=== PATIENT | male | born 1940 | race Caucasian/White ===

== ENCOUNTER 2016-12-01 13:19 | Inpatient (IN) ==
--- NOTE | 2016-12-01 13:31 | Emergency Department Report ---
General Adult HPI - General Stated complaint: Low BP, & LOC Time Seen by Provider: 12/01/16 13:26 - Related Data Home Medications Medication Instructions Recorded Confirmed Nitroglycerin [Nitrostat] 0.4 mg SL Q5MIN PRN #0 09/27/09 Sertraline HCl 100 mg PO DAILY #0 09/28/09 Gabapentin 300 mg PO BID #0 08/31/15 Acetaminophen [Acetaminophen 8 1 - 2 tab PO Q6H PRN #0 09/02/15 Hour] Bismuth Subsalicylate 30 ml PO Q1H PRN #0 09/12/15 [Pepto-Bismol] Potassium Chloride 20 meq PO BIDWM #0 09/12/15 Tamsulosin HCl 0.4 mg PO HS #0 09/12/15 Primidone 100 mg PO BID #0 09/13/15 Carvedilol [Coreg] 1 tab PO BIDWM #0 tab 03/17/16 Furosemide [Lasix] 1 tab PO DAILY #0 tab 03/17/16 Lisinopril 10 mg PO DAILY #0 tab 03/17/16 Rivaroxaban [Xarelto] 1 tab PO DAILY #30 tab 03/17/16 Previous Rx's Medication Instructions Recorded Aspirin [Aspirin EC] 81 mg PO DAILY 30 Days #30 tab 03/21/16 Clopidogrel Bisulfate [Plavix] 75 mg PO DAILY 30 Days #30 tab 03/21/16 Allergies Allergy/AdvReac Type Severity Reaction Status Date / Time Penicillins Allergy Unknown RASH Verified 03/20/16 11:46 morphine AdvReac Mild NAUSEA Verified 03/20/16 11:46 Disposition Prescriptions: No Action Sertraline HCl 100 mg PO DAILY #0 Tamsulosin HCl 0.4 mg PO HS #0 Bismuth Subsalicylate [Pepto-Bismol] 30 ml PO Q1H PRN #0 PRN Reason: INDIGESTION Rivaroxaban [Xarelto] 1 tab PO DAILY #30 tab Carvedilol [Coreg] 1 tab PO BIDWM #0 tab Furosemide [Lasix] 1 tab PO DAILY #0 tab Lisinopril 10 mg PO DAILY #0 tab Clopidogrel Bisulfate [Plavix] 75 mg PO DAILY 30 Days #30 tab Aspirin [Aspirin EC] 81 mg PO DAILY 30 Days #30 tab Nitroglycerin [Nitrostat] 0.4 mg SL Q5MIN PRN #0 PRN Reason: CHEST PAIN Gabapentin 300 mg PO BID #0 Acetaminophen [Acetaminophen 8 Hour] 1 - 2 tab PO Q6H PRN #0 PRN Reason: PAIN Potassium Chloride 20 meq PO BIDWM #0 Primidone 100 mg PO BID #0 Referrals: Nilesh Sarmiento MD [Primary Care Provider] - Raj Rizo DO [Family Provider] -
--- OUTSIDE RECORDS SUMMARY | 2016-12-01 13:46 | External Medical Summary | Continuity of Care Document ---
:1940 Author Organization [facility] in [place] Allergies Active Description Code Type Severity Reaction Onset Reported/ Identified Relationship Clinical to Patient Status Yes Penicillins Drug N/A Eczema 11/17/2009 Aller (rash) gy Yes No Known Food N/A N/A 10/29/2012 Food Aller Allergies gy Medications Problems Date Dx Attending Type Code Diagnosis Diagnosed By Coded 10/29/2012 Vasquez MATHIAS, Final 272.4 HYPERLIPIDEMIA NEC Nilesh M NOS 10/29/2012 Vasquez MATHIAS, Final 276.8 HYPOPOTASSEMIA Nilesh M 10/29/2012 Vasquez MATHIAS, Final 285.9 ANEMIA NOS Nilesh M 10/29/2012 Vasquez MATHIAS, Final 298.9 PSYCHOSIS NOS Nilesh M 10/29/2012 Vasquez MATHIAS, Final 311 DEPRESSIVE DISORDER Nilesh M NEC 10/29/2012 Vasquez MATHIAS, Final 401.9 HYPERTENSION NOS Nilesh M 10/29/2012 Vasquez MATHIAS, Final 414.01 COR -CHER-AE HEIGHTS VESSEL Nilesh M 10/29/2012 Vasquez MATHIAS, Final 530.81 ESOPHAGEAL REFLUX Nilesh 10/29/2012 Vasquez MATHIAS, Final 805.06 FX C6 Nilesh Acevedo VERTEBRA-CLOSED 10/29/2012 Vasquez MATHIAS, External E849.0 HOME ACCIDENTS Nilesh Acevedo 10/29/2012 Vasquez MATHIAS, External E881.0 FALL FROM LADDER Nilesh Acevedo Procedures Results Encounters ACCT No. Visit Discharge Status Pt. Type Provider Facility Loc./Unit Complaint Date/Time [id number] 10/29/2012 11/07/2012 DIS Inpatient Vasquez MATHIAS, [id number] 16:43:00 10:30:00 [facility] on [place]
--- NOTE | 2016-12-01 14:33 | CT Scan Report ---
Indication: confusion and altered mental status PROCEDURE: CT head/brain wo con: Encounter: Initial Comparison: November 08, 2012 Technique: Axial CT images through the head were performed without contrast. Iterative Reconstruction dose reducing technique was utilized. FINDINGS: Generalized atrophy. The ventricles are dilated but unchanged. There are scattered areas of low attenuation in the white matter which most likely represent changes from chronic microvascular ischemia. The brainstem, cerebellum, and cerebral hemispheres otherwise have a normal morphology and CT attenuation. There is no evidence of midline displacement. No hemorrhage, signs of acute territorial stroke, mass effect, mass lesions, or edema is evident. The visualized portions of the skull base, midface, and calvarium demonstrate no abnormality. The paranasal sinuses are well aerated and free of significant disease. The tympanic and mastoid cavities appear normal. IMPRESSION: No acute intracranial abnormality or hemorrhage. .
[2016-12-01] MEDS ORDERED: ONDANSETRON 4 MG/2 ML INJECTION IVP PRN (15:34)
[2016-12-01] MEDS ORDERED: PANTOPRAZOLE 40 MG INJECTION IVP SCH (15:34)
[2016-12-01] MEDS ORDERED: PANTOPRAZOLE 40 MG INJECTION IVP ONE (15:56)
[2016-12-01] MEDS ORDERED: IDARUCIZUMAB 2.5 GM/50 ML IVP ONE (16:15)
--- NOTE | 2016-12-01 16:59 | History & Physical Report ---
History of Present Illness Date: 12/01/16 Chief complaint: hypotension HPI: Patient is a pleasant 76-year-old male shelter patient with history of coronary artery disease and atrial fibrillation. He is on aspirin, Plavix, and Pradaxa. He had a PTCA and stent on 03/20/2016. He has had low blood pressure at the shelter for the past few days and received IV fluids yesterday, but blood pressure was still low today. EMS arrived and blood pressure was 70/30. He was given IV fluids and transferred to the emergency room where blood pressure was 95/52. The patient's hemoglobin was found to be 4.1. His INR was 1.58. PTT was 45.1. BUN was 42. Creatinine 1.3. The patient was typed and crossed for 2 units. IV fluids were continued in the emergency room. I was called to admit the patient for GI bleed. The ER doctor did do a rectal exam which revealed dark stool which was Hemoccult positive. The patient was admitted to CCU. He denies any shortness of breath or chest pain. He denies any palpitations. He states he has felt lightheaded for about one week. He thinks he has had dark stools for about a week and has had a poor appetite for about a week. He has mild dementia. He states he is nonambulatory. He is agreeable to blood transfusion. Review of Systems Review of systems: Comprehensive review of systems is negative other than the above in history of present illness PFSH Mild dementia, gait instability, chronic constipation, Class III systolic heart failure hypertension, coronary artery disease, [place], stent placement in January 2017, GERD, BPH, migraines, osteoarthritis, depression, history of C. difficile in the summer of 2015, nocturnal hypoxia requiring 2 L of oxygen, Chronic tremor Surgical History: Inguinal hernia repair. Cholecystectomy. Cardiac stent. Joint surgery on his hip, knee and shoulder Family History: CHF, hypertension - Social History Smoking status: Never smoker (son Nikunj is DPOA, I spoke with him and he stated his status full code) Medications Home Medications Medication Instructions Recorded Confirmed Type Nitroglycerin [Nitrostat] 0.4 mg SL Q5MIN PRN #0 09/27/09 12/01/16 History Sertraline HCl 100 mg PO DAILY #0 09/28/09 12/01/16 History Gabapentin 300 mg PO BID #0 08/31/15 12/01/16 History Acetaminophen [Acetaminophen 8 1 - 2 tab PO Q6H PRN #0 09/02/15 12/01/16 History Hour] Bismuth Subsalicylate 30 ml PO Q1H PRN #0 09/12/15 12/01/16 History [Pepto-Bismol] Potassium Chloride 20 meq PO BIDWM #0 09/12/15 12/01/16 History Tamsulosin HCl 0.4 mg PO HS #0 09/12/15 12/01/16 History Primidone 100 mg PO BID #0 09/13/15 12/01/16 History Carvedilol [Coreg] 12.5 mg PO BIDWM #0 tab 03/17/16 12/01/16 History Furosemide [Lasix] 40 tab PO DAILY #0 tab 03/17/16 12/01/16 History Lisinopril 10 mg PO DAILY #0 tab 03/17/16 12/01/16 History Dabigatran [Pradaxa] 150 mg PO BID 12/01/16 12/01/16 History Oxybutynin Chloride 5 mg PO TID 12/01/16 12/01/16 History Allergies Allergy/AdvReac Type Severity Reaction Status Date / Time Penicillins Allergy Unknown RASH Verified 12/01/16 13:55 morphine AdvReac Mild NAUSEA Verified 12/01/16 13:55 Exam Vital Signs: Temperature 96.8 F 12/01/16 13:22 Pulse Rate 124 H 12/01/16 15:11 Respiratory Rate 16 12/01/16 15:11 Blood Pressure 95/52 12/01/16 15:11 Pulse Oximetry 100 12/01/16 15:11 Comments: Heart rate is 131, systolic blood pressure 95, O2 sat 100%, respiratory rate 20 GEN-pale, alert, oriented to [facility] and November, no acute distress HEENT-sclera anicteric, oropharynx is dry NECK-supple CV-tachycardic rate with an irregularly irregular rhythm CHEST-clear to auscultation bilaterally ABD-soft, nontender, nondistended with positive bowel sounds -no [place] EXT-no edema NEURO-significant for bilateral lower extremity weakness which is chronic SKIN-pale, warm and dry Results - Labs CBC & Chem 7: 12/01/16 14:12/01/16 14:06 Labs: INr 1.58, PTT 45.1 Assessment and Plan Assessment and Plan: 12/01/2016 Impression Acute blood loss anemia Hypotension Presumed Upper GI bleed Chronic anticoagulation with rapid access Chronic antiplatelet use with Plavix and aspirin for stent placed in February 2016 Chronic A. fib-currently A. fib with RVR Coronary artery disease-currently asymptomatic mild dementia History of hypertension Chronic nocturnal hypoxia for which he uses 2 L of oxygen Class III systolic heart failure Plan Admit to CCU. Full code per patient's son who is DPOA. Type and cross 2 units of blood and stay 2 units ahead. Give 2 units of blood now. Praxbind to reverse Pradaxa now Protonix 80 mg IV followed by protonix drip Nothing by mouth Q6 hour hemoglobin Hold all by mouth meds SCDs for DVT prophylaxis Consult Dr. Herrera regarding GI bleed/EGD Consult Dr. Thompson regarding underlying coronary artery disease Chest x-ray Check a lipid function test now and in the morning Greater than 70 minutes of critical care time spent seeing and evaluating the patient in determining care plan. Hospital Course Summary Disclaimer: The visit summary below is not to be considered part of the above Progress Note.
--- NOTE | 2016-12-01 17:31 | Cardiology Consult Note ---
History of Present Illness Consult date: 12/01/16 <Gaby Solis - 12/01/16 17:35> Requesting physician: Alyssa Adams <Gaby Solis - 12/01/16 17:35> Consult reason: atrial fibrillation, congestive heart failure <Gaby Solis - 12/01/16 17:35> Chief complaint: hypotension, lightheadedness <Gaby Solis - 12/01/16 18:16 > History of present illness: Rahul is a 76-year-old male who is known to Dr. Thompson with a history of chronic systolic heart failure, NYHA Class III, paroxysmal atrial fibrillation, cardiomyopathy, CAD with stent to [facility] in 02/2016 , HTN, CVA who is on aspirin, Plavix, and Pradaxa. He has had low blood pressure at the [facility] for the past few days and received IV fluids yesterday, but blood pressure was still low today. EMS arrived and blood pressure was 70/30. He was given IV fluids and transferred to the emergency room where blood pressure was 95/52. The patient's hemoglobin was found to be 4.1. His INR was 1.58. PTT was 45.1. BUN was 42. Creatinine 1.3. He was typed and crossed for 2 units, fist has transfused, 2nd is being hung now. IV fluids were continued in the emergency room. He was admitted to CCU for GI bleed. Dark stool was Hemoccult positive. He denies any shortness of breath or chest pain. He denies any palpitations. He states he has felt lightheaded for about one week. He thinks he has had dark stools for about a couple months. He has mild dementia. He states he is nonambulatory. He is agreeable to blood transfusion. <Gaby Solis - 12/04/16 11:27> Review of Systems - Constitutional Constitutional: Absent: chills, fever(s) <Gaby Solis - 12/01/16 17:35> - EENMT Eyes: Absent: change in vision <Gaby Solis - 12/01/16 17:35> Balance: Absent: vertigo <Gaby Solis - 12/01/16 17:35> Mouth/Throat: Absent: sore throat <Gaby Solis 12/01/16 17:35> - Cardiovascular Cardiovascular: Absent: chest pain, palpitations, syncope, dyspnea on exertion <Gaby Solis 12/01/16 17:35> - Respiratory Respiratory: Present: dyspnea, dyspnea on exertion <Gaby Solis Kristina 12/01/16 17:35> - Gastrointestinal Gastrointestinal: Present: melena. Absent: abdominal pain, diarrhea, nausea, vomiting <Gaby Solis Kristina 12/01/16 17:35> - Genitourinary Genitourinary: Absent: dysuria <Gaby Solis Kristina 12/01/16 17:35> - Integumentary/Breasts Integumentary: Absent: rash <Gaby Solis 12/01/16 17:35> - Neurological Neurological: Present: dizziness <Gaby Solis 12/01/16 17:35> [facility] Patient Stated Medical History Cardiac Arrhythmia Yes Coronary Artery Disease Yes Heart Murmur Yes Hypertension Yes Chronic Obstructive Pulmonary Yes Disease (COPD) Gastroesophageal Reflux Yes Disease Hx Renal Disease No <Hemant Thompson - 12/05/16 08:08> CAD, CVA, AFIB, Seizure disorder <Gaby Solis 12/01/16 18:16> Surgical History: Inguinal hernia repair. Cholecystectomy. Cardiac stent. Joint surgery on his hip, knee and shoulder <Gaby Solis 12/01/16 17:35> Family History: Father - HTN Mother - CHF, HTN <Gaby Solis 12/01/16 18:16> - Social History Smoking status: Never smoker <Gaby Solis 12/01/16 18:16> Substance use type: does not use <Gaby Solis 12/01/16 18:16> Alcohol intake frequency: does not drink <Gaby Solis 12/01/16 18:16> Housing: [facility] <Gaby Solis 12/01/16 18:16> Household members: none <Gaby Solis 12/01/16 18:16> Current occupational status: retired <Gaby Solis 12/01/16 18:16> Current residence: [facility] <Gaby Solis 12/01/16 18:16> Medications Home Medications Medication Instructions Recorded Confirmed Type Nitroglycerin [Nitrostat] 0.4 mg SL Q5MIN PRN #0 09/27/09 12/01/16 History Sertraline HCl 100 mg PO DAILY #0 09/28/09 12/01/16 History Gabapentin 300 mg PO BID #0 08/31/15 12/01/16 History Acetaminophen [Acetaminophen 8 1 - 2 tab PO Q6H PRN #0 09/02/15 12/01/16 History Hour] Bismuth Subsalicylate 30 ml PO Q1H PRN #0 09/12/15 12/01/16 History [Pepto-Bismol] Potassium Chloride 20 meq PO BIDWM #0 09/12/15 12/01/16 History Tamsulosin HCl 0.4 mg PO HS #0 09/12/15 12/01/16 History Primidone 100 mg PO BID #0 09/13/15 12/01/16 History Carvedilol [Coreg] 12.5 mg PO BIDWM #0 tab 03/17/16 12/01/16 History Furosemide [Lasix] 40 tab PO DAILY #0 tab 03/17/16 12/01/16 History Lisinopril 10 mg PO DAILY #0 tab 03/17/16 12/01/16 History Dabigatran [Pradaxa] 150 mg PO BID 12/01/16 12/01/16 History Oxybutynin Chloride 5 mg PO TID 12/01/16 12/01/16 History <Hemant Thompson - 12/05/16 08:08> Allergies Allergy/AdvReac Type Severity Reaction Status Date / Time Penicillins Allergy Unknown RASH Verified 12/01/16 13:55 morphine AdvReac Mild NAUSEA Verified 12/01/16 13:55 <Hemant Thompson - 12/05/16 08:08> Exam Vital signs: Temperature 98.7 F 12/05/16 00:58 Pulse Rate 92 12/05/16 00:58 Respiratory Rate 20 12/05/16 00:58 Blood Pressure 112/66 12/05/16 00:58 Pulse Oximetry 92 12/05/16 00:58 <Hemant Thompson - 12/05/16 08:08> Temperature 96.8 F 12/01/16 13:22 Pulse Rate 124 H 12/01/16 17:18 Respiratory Rate 20 12/01/16 17:18 Blood Pressure 95/52 12/01/16 15:11 Pulse Oximetry 100 12/01/16 17:18 <Gaby Solis - 12/01/16 17:35> - Constitutional no acute distress, well developed <Gaby Solis - 12/01/16 18:16> - Routine HEENT Exam Head: Present: normocephalic <Gaby Solis - 12/01/16 18:16> ENT: Present: mucous membranes moist <Gaby Solis - 12/01/16 18:16> - Routine Neck Exam Absent: JVD, carotid bruit <Gaby Solis - 12/01/16 18:16> - Routine Chest/Breast/Axilla Exam Chest wall: Absent: tenderness <Gaby Solis - 12/01/16 18:16> - Routine Respiratory Exam Present: CTA bilaterally. Absent: rales, wheezes <Gaby Solis - 12/01/16 18:43> - Routine Cardiovascular Exam Present: no murmur, irregular rhythm. Absent: JVD <Gaby Solis - 12/01/16 18:43> - Routine Abdominal Exam Present: soft, normoactive bowel sounds <Gaby Solis - 12/01/16 18:43> - Routine Extremities Exam Present: no edema <Gaby Solis 12/01/16 18:43> - Routine Skin Exam Present: intact, dry, warm <Gaby Solis - 12/01/16 18:43> - Routine Neurological Exam Present: alert, oriented X3 <Gaby Solis - 12/01/16 18:43> - Routine Psychiatric Exam Present: normal affect, normal thought process <Gaby Solis - 12/01/16 18: 43> Results 12/05/16 05:05 12/05/16 05:05 <Hemant Thompson - 12/05/16 08:08> Cardiac Enzymes 12/04/16 Range/Units 04:51 Troponin I 0.078 (0-0.12) ng/ml CBC 12/05/16 Range/Units 05:05 WBC 5.7 (4.5-11.0) T/MM3 RBC 2.81 L (4.50-5.90) M/MM3 Hgb 8.0 L (13.5-17.5) GM/DL Hct 25.0 L (41-53) % Plt Count 159 (130-400) T/MM3 Comprehensive Metabolic Panel 12/05/16 Range/Units 05:05 Sodium 145 H (134-144) MEQ/L Potassium 3.5 L (3.6-5) MEQ/L Chloride 117 H (98-107) MEQ/L Carbon Dioxide 23 (22-30) MEQ/L BUN 13.0 (9-20) MG/DL Creatinine 1.0 D (0.8-1.5) MG/DL Glucose 89 (75-110) MG/DL Calcium 7.5 L D (8.4-10.2) MG/DL Intake and Output 12/04/16 12/05/16 12/05/16 22:59 06:59 14:59 Intake Total 447.083 / 447.083 800 / 800 Balance 447.083 / 447.083 800 / 800 Intake: IV 27.083 / 27.083 NS 500ml 500 ml @ 125 mls 0 / 0 /hr IV .Q4H GOVIND Rx#: [id number] Pantoprazole IV 80 mg In 27.083 / 27.083 NS 250ml 250 ml @ 8 MG/HR 25 mls/hr IV .Q10H GOVIND Rx#:[id number] Oral 420 / 420 800 / 800 Other: Urine Odor Normal Stool Color Brown Yellow Clear Stool Consistency Liquid Size of Bowel Movement Moderate # Voids 2 1 # Incontinent Voids 1 1 # Bowel Movements 1 <Hemant Thompson - 12/05/16 08:08> Intake and Output 12/01/16 12/01/16 12/01/16 06:59 14:59 22:59 Intake Total 432 / 432 Balance 432 / 432 Intake: IV 432 / 432 NS 500ml 500 ml @ 999.9 432 / 432 mls/hr IV .Q30M GOVIND Rx#: [id number] <Gaby Solis - 12/01/16 17:35> - Imaging and Cardiology Imaging & Cardiology Narrative: Date of Exam: 12/01/16 Ordering Provider: IrmaGaby davis APRN Type of Exam(s): XR chest 1V Reason for Exam(s): afib Indication: afib PROCEDURE: XR chest 1V: Encounter: Initial Comparison: September 12, 2015 Findings: Prior left lower lobe infiltrate has cleared. Lungs are hypoinflated but grossly clear. No pneumothorax or effusion. Heart size and mediastinal contours are stable. Pulmonary vascularity is normal. Impression: No pneumonia or congestive failure. There is a preliminary report by virtual radiologic. Date of Exam: 12/01/16 Ordering Provider: Anam Casiano MD Type of Exam(s): CT head/brain wo con Reason for Exam(s): confusion and altered mental status Indication: confusion and altered mental status PROCEDURE: CT head/brain wo con: Encounter: Initial Comparison: November 08, 2012 Technique: Axial CT images through the head were performed without contrast. Iterative Reconstruction dose reducing technique was utilized. FINDINGS: Generalized atrophy. The ventricles are dilated but unchanged. There are scattered areas of low attenuation in the white matter which most likely represent changes from chronic microvascular ischemia. The brainstem, cerebellum, and cerebral hemispheres otherwise have a normal morphology and CT attenuation. There is no evidence of midline displacement. No hemorrhage, signs of acute territorial stroke, mass effect, mass lesions, or edema is evident. The visualized portions of the skull base, midface, and calvarium demonstrate no abnormality. The paranasal sinuses are well aerated and free of significant disease. The tympanic and mastoid cavities appear normal. IMPRESSION: No acute intracranial abnormality or hemorrhage. <Gaby Solis - 12/04/16 11:27> EKG interpretations - EKG EKG shows: atrial fibrillation (with RVR) <Gaby Solis - 12/01/16 18:43> Assessment and Plan - Attestation Attestation Narrative: 12/05/16 08:08 Recommendation After examining the patient I agree with the above assessment. I am involved in the formulation of the patient's plan of care. <Hemant Thompson - 12/05/16 08:08> - Assessment and Plan (1) Paroxysmal atrial fibrillation Current visit: Yes Status: Acute (2) Cardiomyopathy Current visit: Yes Status: Acute (3) Atherosclerotic heart disease of [place] coronary artery without angina pectoris Current visit: Yes Status: Acute (4) Essential (primary) hypertension Current visit: Yes Status: Acute (5) Other cerebral infarction Current visit: Yes Status: Acute (6) Diastolic CHF Current visit: Yes Status: Acute (7) Anemia Current visit: Yes Status: Acute <Hemant Thompson - 12/05/16 08:08> (1) Diastolic CHF Current visit: Yes Status: Acute Last EF on [facility] 03/20/16 was 60%, up from 38% - Will likely need diuresis after correction of anemia and hypotension - Hold home meds at this time: Will eventually restart home Coreg, lisinopril, Lasix (2) Paroxysmal atrial fibrillation Current visit: Yes Status: Acute RVR driven up by anemia, hypovolemia. - should resolve with transfusions and IVF resuscitation (3) Cardiomyopathy Current visit: Yes Status: Acute Continue Coreg when stable (4) Atherosclerotic heart disease of [place] coronary artery without angina pectoris Current visit: Yes Status: Acute Coronary stent to [facility] 03/20/16. - Hold Aspirin and Plavix due to acute anemia (5) Essential (primary) hypertension Current visit: Yes Status: Acute (6) Other cerebral infarction Current visit: Yes Status: Acute (7) Anemia Current visit: Yes Status: Acute HGB 4.1 - Type and cross and transfuse 2 units per hospitalist and recheck Hgb - Stools positive for occult blood - Stop Aspirin, plavix and Pradaxa - PradaxaBind given per hospitalist <Gaby Solis - 12/04/16 11:21> Hospital Course Summary Disclaimer: The visit summary below is not to be considered part of the above Progress Note. <Hemant Thompson - 12/05/16 08:08> The visit summary below is not to be considered part of the above Progress Note. <Gaby Solis - 12/01/16 17:35> Hospital Course: 12/01/16 18:40 Anemia: HGB 4.1 - Type and cross and transfuse 2 units per hospitalist and recheck Hgb - Stools positive for occult blood - Stop Aspirin, plavix and Pradaxa - PradaxaBind given per hospitalist Diastolic HF: Last EF on [facility] 03/20/16 was 60%, up from 38% - Will likely need diuresis after correction of anemia and hypotension - Hold home meds at this time: Will eventually restart home Coreg, lisinopril, Lasix AFib: RVR driven up by anemia, hypovolemia. - should resolve with transfusions and IVF resuscitation Thank you for allowing us to participate in the care of this patient, we will follow along with you <Gaby Solis - 12/04/16 11:27>
[2016-12-01] MEDS: PANTOPRAZOLE IV 80 MG in NS 250ml 250 ML IV SCH (17:38)
[2016-12-01] MEDS ORDERED: FUROSEMIDE 40 MG/4 ML INJECTION IVP ONE (23:00)
[2016-12-02] MEDS: SALINE FLUSH 10ml SYRINGE IVF PRN (00:25)
[2016-12-02] MEDS ORDERED: FentaNYL 100 MCG/2 ML INJECTION IVP PRN (02:44)
[2016-12-02] MEDS: PANTOPRAZOLE IV 80 MG in NS 250ml 250 ML IV SCH ×2 (03:03→14:11)
--- NOTE | 2016-12-02 10:50 | Progress Note ---
Subjective: 76-[facility]-old male [facility] patient with history of coronary artery disease and atrial fibrillation. He is on aspirin, Plavix, and Pradaxa. He had a PTCA and stent on 03/20/2016. He has had low blood pressure at the fci for the past few days and received IV fluids the day prior to admission, but blood pressure was still low today. EMS arrived and blood pressure was 70/30. He was given IV fluids and transferred to the emergency room where blood pressure was 95/52. The patient's hemoglobin was found to be 4.1. His INR was 1.58. PTT was 45.1. BUN was 42. Creatinine 1.3. The patient was typed and crossed for 2 units. IV fluids were continued in the emergency room. The ER doctor did do a rectal exam which revealed dark stool which was Hemoccult positive. The patient was admitted to CCU. Because of his treatment with Pradaxa he did receive Praxbind. He thinks he has had dark stools for about a week and has had a poor appetite for about a week. He has mild dementia. He states he is nonambulatory. This morning the patient reports feeling better. However most of his answers are simply "yes". Her nursing he is more confused today. I discussed the patient with general surgery today who also thinks the patient is more confused today. When asked if he was having any pain he admitted to abdominal pain, chest pain, leg pain so I am not sure if this is a accurate review of systems. He did have large black bowel movement overnight. He is still mildly tachycardic. The surgeon reported he may take the patient for scope tomorrow. He is going to run another P2Y12 assay to see if it is a bit higher than todays. If it is he plans on proceeding. He has received for units of packed red blood cells since admission. His hemoglobin is now up to 9.5. His blood pressure is mildly elevated as his antihypertensives have been on hold. He remains on a Protonix drip. He is incontinent of urine and is wearing a diaper. He had a stent placed in February in the diagonal artery by Dr. Reyes who is following the patient along with us on this admission for that as well as his chronic atrial fibrillation for which he takes the oral anticoagulation. Objective Vital signs: Temperature 97.4 F 12/02/16 04:00 Pulse Rate 104 H 12/02/16 05:00 Respiratory Rate 21 12/02/16 05:00 Blood Pressure 160/77 H 12/02/16 05:00 Pulse Oximetry 96 12/02/16 05:00 Rhythm: Atrial Fibrillation with RVR Comments: Gen: confused. Awake and alert. Skin: warm and dry HEENT: NC/AT PERRL, EOMI, Sclera, lids and conjunctiva wnl. MMM. OP clear Neck: supple. No JVD, Carotids 2+ without bruits Lungs: diminished. Clear. No Wheezes CV: irregular and slightly tachycardic. Results - Labs CBC & Chem 7: 12/02/16 09:52 12/02/16 04:05 Assessment and Plan Assessment and Plan: 12/02/2016 1. Acute blood loss anemia -Has been transfused 4 PRBCs, -Hgb fairly stable at present. -Off plavix, ASA and Pradaxa -Has been given Praxbind -Gen surgery consulted and plans for EGD Sun/Mon depending on P2Y12. -On protonix gtt. -q6hr H&H 2. H/O HF -h/o Systolic and diastolic HF. -Systolic better by HC to 60% 2016. -will resume coreg when BP more consistently higher. 3. PAF -Followed by Dr. Reyes -Off OAC for now due to GIB -Rate control, resume Coreg when BP more stable 4. MEDICAL OFFICE COORDINATOR -Systolic function normalized -Resume coreg when BP better -Dr. Reyes following. 5. CAD -Recent (Feb 2016) stent to Diag artery -Holding plavix and ASA due to GIB 6. HTN -BP variable. Will resume coreg when consistently higher. 7. Dementia 8. Prophylaxis with SCDs, protonix 9. Nocturnal hypoxia -On oxygen 2 liters. 10. Pt made a DNR - Time spent with patient Time with patient PN: 50 minutes Hospital Course Summary Disclaimer: The visit summary below is not to be considered part of the above Progress Note. Hospital Course: 12/01/16 18:40 Anemia: HGB 4.1 - Type and cross and transfuse 2 units per hospitalist and recheck Hgb - Stools positive for occult blood - Stop Aspirin, plavix and Pradaxa - PradaxaBind given per hospitalist Diastolic HF: Last EF on [facility] 03/20/16 was 60%, up from 38% - Will likely need diuresis after correction of anemia and hypotension - Hold home meds at this time: Will eventually restart home Coreg, lisinopril, Lasix AFib: RVR driven up by anemia, hypovolemia. - should resolve with transfusions and IVF resuscitation Thank you for allowing us to participate in the care of this patient, we will follow along with you
--- NOTE | 2016-12-02 11:21 | Consultation ---
DATE OF CONSULTATION 12/01/2016 HISTORY OF PRESENT ILLNESS This patient is 76 years old. This patient is known to have cardiac disease which includes cardiac disease which includes NYHA class III chronic systolic heart failure, paroxysmal atrial fibrillation, cardiomyopathy and coronary artery disease. The patient did undergo cardiac catheterization with placement of a drug-eluting coronary artery stent at the diagonal coronary artery on 03/[address] Thompson at [facility]. The patient has recently been anticoagulated with aspirin, Plavix and Pradaxa. The patient states that he has had black stools for the last one to two weeks. The patient denies any recent abdominal pain. The patient has had a low blood pressure at the fci for the past few days. He did receive some intravenous fluids yesterday. The blood pressure of the patient was still low today. Emergency Medical Services was called to the [facility] where the patient resides and asked to transport the patient to [facility] Emergency Room for further evaluation. Emergency Medical Services personnel found that the blood pressure of the patient was 70/30 at this time. The patient was given intravenous fluids and transferred to [facility] Emergency Room. Blood pressure was 95/52 at [facility] Emergency Room. The patient did undergo evaluation at [facility] Emergency Room and was found to have a hemoglobin of 4.1. Rectal exam was performed at the emergency room and the rectal examination did reveal dark stool which was Hemoccult positive. The patient was given additional intravenous fluids in the emergency room. The patient was typed and crossed for blood transfusion. The patient was transferred from [facility] Emergency Room to the Intensive Care Unit. The patient has received transfusion with 1 unit of packed red blood cells already. The patient has been given Praxbind 5 g intravenously to reverse the Pradaxa. The patient has had a midline catheter placed to improve intravenous access. PAST MEDICAL HISTORY PREVIOUS OPERATIONS AND PROCEDURES 1. Repair of extensive laceration at left fourth toe when the patient was [age] years old. 2. Repair of laceration of palm of left hand when 5 years old. 3. Repair of indirect right inguinal hernia on 08/21/[address] Mati Asif at [place], [place]. 4. Repair of recurrent right inguinal hernia, bilateral vasectomy and excision of skin lesion at right leg on 05/18/[address] Toni Pedroza at [place], [place]. 5. Repair of recurrent right inguinal hernia and right orchiectomy on [address] Toni Pedroza at [facility] at [place], [place]. The operation was performed for treatment of incarcerated recurrent right inguinal hernia. 6. Exploration of left foot and release of medial plantar nerve on 08/26/[address] Lee at [facility] at [place], [place]. The operation was performed for treatment of compression of the medial plantar nerve at the left foot. 7. Repair of left inguinal hernia on 06/08/[address] Herrera at [facility] at [place], [place]. The patient had an indirect left inguinal hernia. 8. Cardiac catheterization with angioplasty of the left anterior descending coronary artery on 07/25/[address] Naranjo at [facility] at [place], [place]. Discharge diagnoses were unstable angina secondary to stenosis of the mid left anterior descending coronary artery, essential hypertension and increased anxiety state. 9. Esophagogastroduodenoscopy with biopsies and esophageal dilation on [address] Herrera at [facility]. The patient did have dysphagia at this time. The patient had a small hiatal hernia. There was some chronic antral gastritis with erosions. There was some mild chronic duodenitis. 10. Laparoscopic cholecystectomy on 09/21/[address] Otto at [facility] at [place], [place]. Discharge diagnosis was acute and chronic cholecystitis. 11. Open reduction and internal fixation of left ankle on 10/29/[address] Lee at [place], [place]. Postoperative diagnosis was bimalleolar fracture of left ankle. 12. Right high tibial osteotomy on 03/25/[address] Lee at [place], [place]. Discharge diagnoses were status post fracture of right medial tibial plateau with varus angulation, postoperative anemia, hypertension, anxiety, hyperlipidemia and hiatal hernia. 13. Esophagogastroduodenoscopy with biopsies and esophageal dilation on [address] Herrera at [facility]. The patient did have a mild stricture at the gastroesophageal junction. Biopsies at the stricture showed benign results. The patient also had esophageal spasm. The patient also had some mild duodenitis. There was also a small hiatal hernia. 14. Esophagogastroduodenoscopy with biopsies and balloon dilation at gastroesophageal junction on 04/05/[address] Herrera at [facility] at [place], [place]. The patient did have a moderate-size hiatal hernia. The pathology report on biopsies of tissue at the gastroesophageal junction showed no diagnostic abnormalities. The patient did appear to have a mild stricture at the gastroesophageal junction. The patient had been having some recurrent dysphagia prior to this procedure. 15. Removal of screws through minimal access approach on 11/29/[address] Rojo at [facility] at [place], [place]. Postoperative diagnosis was tender screws around left ankle. 16. Total colonoscopy on 04/01/[address] Herrera at [facility] at [place], [place]. The patient had some sigmoid colon diverticulosis and some internal and external hemorrhoids. 17. Esophagogastroduodenoscopy with biopsies and balloon dilation at distal esophagus and gastroesophageal junction with passage of a Galarza bougie dilator on 12/01/[address] Herrera at [facility] at [place], [place]. The patient was thought after this procedure to have recurrent dysphagia which was probably due to esophageal spasm. No stricture of the distal esophagus or gastroesophageal junction was found at this time. The patient did have several gastric ulcers. The patient had duodenitis and duodenal erosions. The patient had esophageal spasm. The patient had gastritis and gastric erosions. There was a small hiatal hernia. JOHN test study was negative. 18. Left scrotal exploration, testicular biopsy, left epididymectomy and hydrocelectomy on 04/10/[address] Cramer at [facility] at [place], [place]. Postoperative diagnoses were painful spermatocele, hydrocele and thickened tunica vaginalis. 19. Left scrotal exploration, evacuation of hematoma and insertion of a drain on 04/12/[address] Cramer at [facility] at [place], [place]. Postoperative diagnosis was left scrotal hematoma. 20. Right total knee replacement on 05/19/[address] Wale Pavon at hospital on [facility] at [place], [place]. 21. Flexible cystoscopy on 08/09/[address] Jovita Yuen at the [facility] at [place], [place]. Postoperative diagnoses were chronic bladder outlet obstruction, moderate prostate enlargement, trabeculation of the bladder wall and shallow bladder diverticula. 22. Esophagogastroduodenoscopy and total colonoscopy on 09/28/[address] Herrera at [facility] at [place], [place]. Discharge diagnoses were anemia, positive fecal occult blood test, duodenitis, gastroesophageal reflux disease, small hiatal hernia, sigmoid colon diverticulosis and internal and external hemorrhoids. JOHN test study was negative at the time of this procedure. Appearance of mucosa at the esophagus was normal at this procedure. 23. Left total hip arthroplasty with ceramic heads on 11/15/[address] Wale Pavon at the [facility] at [place], [place]. Postoperative diagnosis was osteoarthritis of left hip. 24. Cardiac catheterization on 07/18/[address] Mike Santillan at [facility] at [place], [place]. The patient was found to have coronary artery disease. Left ventricular systolic function was normal. The patient did appear to have some aortic insufficiency. 25. Cardiac catheterization with percutaneous transluminal coronary angioplasty and placement of four drug-eluting stents at the coronary arteries on 07/28/[address] Heriberto Santillan at [facility] at [place], [place]. 26. Cataract operation at right eye on 02/06/[address] Ray Ledesma at [facility] at [place], [place]. 27. Cardiac catheterization with placement of a drug-eluting coronary artery stent at the diagonal coronary artery on 03/20/[address] Thompson at [facility] at [place], [place]. OTHER PREVIOUS HOSPITALIZATIONS 1. Hospitalized on 07/25/1991 at [facility] at [place], [place]. Discharge diagnosis was chest pain. The patient was transferred to [facility] at [place], [place] at the end of this hospitalization. 2. Hospitalized in March and April 2010 at the [facility] at [place], [place]. The main discharge diagnosis at this time was enterococcus bacteremia secondary to urinary source with indwelling catheter in place x 4 weeks. Additional discharge diagnoses were chest discomfort on admission with a negative Lexiscan, coronary artery disease, benign prostatic hypertrophy, dyslipidemia, hypertension, anxiety, depression and peripheral neuropathy. 3. Hospitalized in October 2012 at [facility] at [facility] at [place], [place]. One discharge diagnosis was thoracolumbar compression fractures at T4 and L2. Another discharge diagnosis was cervical facet fracture of C8 left-sided facet. The patient experienced these injuries after he fell from a ladder. 4. Hospitalized in August 2015 at [facility] at [place], [place]. Discharge diagnoses were acute septic shock, acute Clostridium difficile colitis , new-onset atrial fibrillation with rapid ventricular response, dehydration, metabolic acidosis, elevated troponin, transaminitis, acute encephalopathy, chronic dementia, history of coronary artery disease and acute bacterial urinary tract infection. PHYSICAL EXAM VITAL SIGNS: Pulse is 124. Respiratory rate is 16. Blood pressure is 95/52. Oxygen saturation is 100% on oxygen at 2 liters per minute by nasal cannula. Height is 1.7 meters. Weight is 101 kg. BMI is 34.9 kg/m2. ABDOMEN: The patient does have old laparoscopic cholecystectomy incision scars. There are no other old incision scars. No abdominal masses. No abdominal tenderness at this time. RECTUM: Exam was deferred at this time since the patient was in the middle of having a midline catheter inserted at the time of my examination of the patient. This did prevent the patient from having a rectal exam performed by me at this time. LABORATORY DATA Hemoglobin is 4.1 and hematocrit is 13.5 at 1406 hours on 12/01/2016. White blood cell count is 7000. Platelet count is 276,000. INR is 1.58. PTT is 45.1. A P2Y12 (Plavix) platelet inhibition test result is still pending at this time. IMPRESSION 1. Acute gastrointestinal tract bleeding with melena. 2. Severe anemia due to acute gastrointestinal tract blood loss. 3. Anticoagulation with aspirin, Plavix and Pradaxa. 4. Coronary artery disease. 5. Status post cardiac catheterization with placement of a drug-eluting stent at the diagonal coronary artery on 03/20/2016. 6. NYHA class III chronic systolic heart failure. 7. Paroxysmal atrial fibrillation. 8. Cardiomyopathy. 9. Small hiatal hernia. 10. Gastroesophageal reflux disease. 11. Personal history of gastric ulcers found at esophagogastroduodenoscopy on 12/01/2004. 12. Sigmoid colon diverticulosis. 13. Internal and external hemorrhoids. 14. Obstructive sleep apnea. 15. Hypertension. 16. Hyperlipidemia. 17. Obstructive benign prostatic hypertrophy. 18. Urgency urinary incontinence. 19. Osteoarthritis. 20. Allergic rhinitis. RECOMMENDATIONS 1. I agree with the decision to give the patient Praxbind to reverse the Pradaxa. 2. Hold Plavix. 3. Monitor P2Y12 (Plavix) platelet inhibition test daily. 3. Continue to transfuse the patient with packed red blood cells. 4. I agree with the Protonix infusion which the patient is receiving 5. Keep patient n.p.o. 6. Esophagogastroduodenoscopy to look for a source for upper gastrointestinal tract bleeding whenever the hemoglobin and hematocrit have been improved by transfusion and whenever the Plavix has been held long enough for the P2Y12 Plavix inhibition tests to return back to a normal level. If no source for acute gastrointestinal tract bleeding is found at the upper gastrointestinal tract at esophagogastroduodenoscopy, the patient will need to undergo colonoscopy. PATIENT EDUCATION I did talk with both the patient and his daughter about having the patient undergo esophagogastroduodenoscopy during this hospitalization. I did talk with them about possible attempts to control any acute upper gastrointestinal tract bleeding point with application of endoscopic Hemoclips or injection therapy or coagulation with a Gold Probe coagulation device. The nature of this procedure was described. Expected benefits were reviewed. Alternatives were reviewed. Potential risks and complications were also reviewed including anesthetic risk, aspiration, hypoxia and induced bleeding. The patient and his daughter appear to understand this and do wish to have the patient proceed with this procedure during this hospitalization. MAGDALENE
--- NOTE | 2016-12-02 11:43 | Progress Note ---
DATE 12/02/2016 HISTORY OF PRESENT ILLNESS This patient has received transfusion with 4 units of packed red blood cells since admission to the hospital. He had three black stools overnight last night. The patient is confused and disoriented this morning. The family has changed the resuscitation status of the patient since admission to the hospital. He was a Full Code at the time of admission to the hospital. The family has changed the patient to a DNR status since admission to the hospital. He remains in the Intensive Care Unit at this time. PHYSICAL EXAMINATION VITAL SIGNS: Temperature is 97.4 degrees Fahrenheit temporal. Pulse is 104. Blood pressure is 160/77. Oxygen saturation is 96% on oxygen at 2 liters per minute by nasal cannula. ABDOMEN: The abdomen is soft. LABORATORY DATA Hemoglobin is 9.6 and hematocrit is 29.2 at 0405 hours on 12/02/2016. INR is 1.13 this morning. The P2Y12 platelet inhibition test result is 214 this morning. IMPRESSION 1. Acute gastrointestinal tract bleeding with melena. 2. Severe anemia due to acute gastrointestinal tract blood loss which has now improved following transfusion of 4 units of packed red blood cells. 3. Recent anticoagulation with aspirin, Pradaxa and Plavix. RECOMMENDATIONS 1. Continue to monitor the patient in the Intensive Care Unit. 2. Continue to monitor hemoglobin and hematocrit levels and transfuse the patient as necessary to keep the hemoglobin and hematocrit in the current range. 3. Recheck P2Y12 Plavix platelet inhibition test again tomorrow morning. 4. Esophagogastroduodenoscopy with possible biopsies and possible control of an upper gastrointestinal tract bleeding point with application of endoscopic Hemoclips or coagulation when the patient has been off Plavix for a little longer and the P2Y12 Plavix platelet inhibition test level is a little bit higher. MTDD
[2016-12-03] MEDS: PANTOPRAZOLE IV 80 MG in NS 250ml 250 ML IV SCH ×2 (01:43→13:26)
--- NOTE | 2016-12-03 08:56 | Progress Note ---
Subjective: 76-year-old male [facility] patient with history of coronary artery disease and atrial fibrillation. He was on aspirin, Plavix, and Pradaxa. He had a stent placed in February in the diagonal artery by Dr. Reyes who is following the patient along with us on this admission for that as well as his chronic atrial fibrillation for which he takes the oral anticoagulation. He has had low blood pressure at the [facility] for the past few days and received IV fluids the day prior to admission, but blood pressure was still low today. EMS arrived and blood pressure was 70/30. He was given IV fluids and transferred to the emergency room where blood pressure was 95/52. The patient's hemoglobin was found to be 4.1. His INR was 1.58. PTT was 45.1. BUN was 42. Creatinine 1.3. The patient was typed and crossed for 2 units. IV fluids were continued in the emergency room. The ER doctor did do a rectal exam which revealed dark stool which was Hemoccult positive. The patient was admitted to CCU. Because of his treatment with Pradaxa he did receive Praxbind. He thinks he has had dark stools for about a week and has had a poor appetite for about a week. He has mild dementia. He states he is nonambulatory. This morning the patient appears very comfortable. He knew he was in [place] but stated he thought he was in the [facility]. When I told him he was in the hospital and asked him why he does report he was having abdominal pain and that' s why he's here. He denies any pain this morning. He denies any shortness of breath. His rhythm is irregular, telemetry shows atrial fibrillation. Rates vary between the 80s to 110s. 12/03/[address] Herrera called me after the EGD was completed. He reports finding absolutely nothing to account for his G.I. bleed. He is going to plan a colonoscopy tomorrow to see if it could possibly have been a proximal colonic bleed. Objective Vital signs: Temperature 96.8 F 12/03/16 04:00 Pulse Rate 87 12/03/16 05:01 Respiratory Rate 17 12/03/16 05:01 Blood Pressure 128/53 12/03/16 05:01 Pulse Oximetry 96 12/03/16 05:01 Rhythm: Atrial Fibrillation with RVR Height/Weight/BMI: Weight 79.8 kg Comments: Gen: Awake and alert. Follows commands Skin: warm and dry HEENT: NC/AT PERRL, EOMI, Sclera, lids and conjunctiva wnl. MMM. OP clear Neck: supple. No JVD, Carotids 2+ without bruits Lungs: diminished. Clear. No Wheezes CV: irregular and slightly tachycardic at times Abd: soft. +BS, ND/NT MS: no edema. Good distal pulses. Neuro: no focal deficit Results - Labs CBC & Chem 7: 12/03/16 10:03 12/03/16 04:36 Assessment and Plan Assessment and Plan: 12/03/2016 1. Acute blood loss anemia -Has been transfused 4 PRBCs, -Hgb stable at present. -Off plavix, ASA and Pradaxa -Has been given Praxbind -Gen surgery consulted and plans for EGD Sun/Mon depending on P2Y12 (285 today) -On protonix gtt. -He could probably eat if surgery not planning on EGD today. 2. H/O HF -h/o Systolic and diastolic HF. -Systolic better by HC to 60% 2016. -will resume coreg when BP more consistently higher. 3. PAF -Followed by Dr. 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 Reyes following. 5. CAD -Recent (Feb 2016) stent to Diag artery -Holding plavix and ASA due to GIB -No complaints of angina 6. HTN -BP variable. Will resume coreg when consistently higher. 7. Hypokalemia -As pt in NPO, will replace IV -Recheck in am. 8. Dementia 9. Prophylaxis with SCDs, protonix 10. Nocturnal hypoxia -On oxygen 2 liters. 11. DNR Patient underwent EGD today without any finding of a source of bleed. Dr. Herrera plans on doing a colonoscopy tomorrow. Hospital Course Summary Disclaimer: The visit summary below is not to be considered part of the above Progress Note. Hospital Course: 12/01/16 18:40 Anemia: HGB 4.1 - Type and cross and transfuse 2 units per hospitalist and recheck Hgb - Stools positive for occult blood - Stop Aspirin, plavix and Pradaxa - PradaxaBind given per hospitalist Diastolic HF: Last EF on [facility] 03/20/16 was 60%, up from 38% - Will likely need diuresis after correction of anemia and hypotension - Hold home meds at this time: Will eventually restart home Coreg, lisinopril, Lasix AFib: RVR driven up by anemia, hypovolemia. - should resolve with transfusions and IVF resuscitation Thank you for allowing us to participate in the care of this patient, we will follow along with you
[2016-12-03] MEDS ORDERED: POTASSIUM CHLORIDE PREMIX 10 MEQ/100 ML BAG IV SCH (09:17)
[2016-12-03] MEDS ORDERED: LIDOCAINE VISCOUS 2% ORAL LIQUID 15ml ONE (10:24)
--- NOTE | 2016-12-03 10:24 | Anesthesia Preoperative Report ---
Anesthesia Preoperative Record - Date and Time Date: 12/03/16 Preoperative Diagnosis: Hypotension, GI Bleed Proposed Procedure: egd NPO Since Date: 12/02/16 NPO Since Time: 12:00 Allergies/Adverse Reactions: Allergies Allergy/AdvReac Type Severity Reaction Status Date / Time Penicillins Allergy Unknown RASH Verified 12/01/16 13:55 morphine AdvReac Mild NAUSEA Verified 12/01/16 13:55 - Vital Signs Vital Signs: Temperature 96.8 F 12/03/16 04:00 Pulse Rate 98 12/03/16 08:00 Respiratory Rate 17 12/03/16 05:01 Blood Pressure 128/53 12/03/16 05:01 Pulse Oximetry 96 12/03/16 05:01 Height and Weight: Weight 79.8 kg - Medications Inpatient Medications: Current Medications Fentanyl (Fentanyl) 25 mcg IVP Q2H PRN PRN Reason: Pain Last Admin: 12/02/16 02:54 Dose: 25 mcg Pantoprazole Sodium 80 mg/ (Sodium Chloride) 250 mls @ 25 mls/hr IV .Q10H GOVIND PRN Reason: 8 MG/HR Last Infusion: 12/03/16 08:00 Dose: 8 mg/hr, 25 mls/hr Potassium Chloride (Potassium Chloride Premix) 10 meq in 100 mls @ 100 mls/hr IV Q1H GOVIND Stop: 12/03/16 13:16 Ondansetron HCl (Zofran) 4 mg IVP Q6H PRN PRN Reason: Nausea Sodium Chloride (Iv Flush) 10 - 80 ml IVF PRN PRN PRN Reason: Flushing Last Admin: 12/02/16 00:25 Dose: 30 ml Sodium Chloride (Normal Saline) 500 ml IV PRN PRN Home Medications: Home Medications Medication Instructions Recorded Confirmed Type Nitroglycerin [Nitrostat] 0.4 mg SL Q5MIN PRN #0 09/27/09 12/01/16 History Sertraline HCl 100 mg PO DAILY #0 09/28/09 12/01/16 History Gabapentin 300 mg PO BID #0 08/31/15 12/01/16 History Acetaminophen [Acetaminophen 8 1 - 2 tab PO Q6H PRN #0 09/02/15 12/01/16 History Hour] Bismuth Subsalicylate 30 ml PO Q1H PRN #0 09/12/15 12/01/16 History [Pepto-Bismol] Potassium Chloride 20 meq PO BIDWM #0 09/12/15 12/01/16 History Tamsulosin HCl 0.4 mg PO HS #0 09/12/15 12/01/16 History Primidone 100 mg PO BID #0 09/13/15 12/01/16 History Carvedilol [Coreg] 12.5 mg PO BIDWM #0 tab 03/17/16 12/01/16 History Furosemide [Lasix] 40 tab PO DAILY #0 tab 03/17/16 12/01/16 History Lisinopril 10 mg PO DAILY #0 tab 03/17/16 12/01/16 History Dabigatran [Pradaxa] 150 mg PO BID 12/01/16 12/01/16 History Oxybutynin Chloride 5 mg PO TID 12/01/16 12/01/16 History Is Patient on Beta Rakan?: No - Medical History Respiratory: Reports: Chronic Obstructive Pulmonary Disease (COPD) Cardiovascular: Reports: Abnormal EKG, Arrhythmia, Coronary Artery Disease, Heart Murmur, Hypertension Gastrointestional: Reports: Gastroesophageal Reflux Disease - Surgical History Cardiac Surgeries/Treatments: DENIES: Pacemaker Reproductive Surgery/Treatment: DENIES: Mastectomy Anesthesia Reactions: None Hx Family Anesthesia Reaction: No History of Motion Sickness: No - Social History Smoking Status: Never smoker Hx Chewing Tobacco Use: No Second Hand Exposure: No Substance Use Type: does not use Alcohol Intake Frequency: does not drink - Pertinent Findings Laboratory: CBC and BMP 12/03/16 10:03 12/03/16 04:36 BMP 12/03/16 04:36 Sodium 148 H Potassium 3.2 L Chloride 118 H Carbon Dioxide 21 L BUN 29.0 H Creatinine 1.3 Glucose 90 Calcium 8.4 EKG: A-fib - Physical Exam Respiratory Exam: Present: lungs clear Cardiovascular Exam: Present: irregularly irregular, systolic murmur - Airway Assessment Mallampati Score: III TMD: 3 Fingerbreadths Neck Extension: fair Teeth: chipped teeth/crowns Overall Assessment: no airway concerns - ASA ASA Score: 4 - Plan Anesthesia: General TIVA - Discussion Discussion: Discussed risks/options/alternatives of anesthesia and questions answered. Patient consents. Nursing pain assessment noted. Attestation Statement: Prior to the delivery of any anesthetic medication, I examined the patient, developed the plan, obtained the patient's consent and discussed the risk and benefits of the procedure with the patient/guardian. - Additional Information Seen by Anesthesia: Yes
--- NOTE | 2016-12-03 10:30 | XRay Report ---
Indication: afib PROCEDURE: XR chest 1V: Encounter: Initial Comparison: September 12, 2015 Findings: Prior left lower lobe infiltrate has cleared. Lungs are hypoinflated but grossly clear. No pneumothorax or effusion. Heart size and mediastinal contours are stable. Pulmonary vascularity is normal. Impression: No pneumonia or congestive failure. There is a preliminary report by virtual radiologic. .
[2016-12-03] MEDS ORDERED: PROPOFOL 500 MG/50 ML VIAL IV ONE (10:33)
[2016-12-03] MEDS ORDERED: SALINE FLUSH 10ml SYRINGE ONE (10:34)
[2016-12-03] MEDS ORDERED: EPHEDRINE 50mg/ml INJECTION ONE (10:35)
[2016-12-03] MEDS ORDERED: SIMETHICONE IR ONE (10:43)
[2016-12-03] MEDS ORDERED: SIMETHICONE ONE (10:43)
--- NOTE | 2016-12-03 10:44 | XRay Report ---
Indication: chf PROCEDURE: XR chest 1V: Encounter: Initial Comparison: December 01, 2016 Findings: Lungs are stable in appearance. Large hiatal hernia. No focal pneumonia or gross pleural effusion. No pneumothorax. Heart size and mediastinal contours are stable. Impression: Stable chest without evidence of acute pneumonia or congestive failure. .
--- NOTE | 2016-12-03 11:05 | General Surgery Procedure Note ---
Date of Procedure: 12/03/16 Surgeon: Javier Postoperative Diagnosis: Acute GI tract bleeding Procedure: EGD Estimated Blood Loss: See Anesthesia Record.
--- NOTE | 2016-12-03 11:11 | Anesthesia Postoperative Note ---
- Date and Time Date: 12/03/16 Time: 11:10 - Status Patient Participated in Evaluation: Patient Participated in Person Vital Signs: Temperature 98.0 F 12/03/16 09:00 Pulse Rate 88 12/03/16 09:00 Respiratory Rate 17 12/03/16 09:00 Blood Pressure 110/78 12/03/16 09:00 Pulse Oximetry 98 12/03/16 09:00 Respiratory Function: Airway Patent Cardiovascular Function: Irregular Pulse EKG: A-fib Mental Status: Alert and Oriented Pain Intensity: 0 Hydration: Taking PO Fluids, IV Infusing Complications During Recover: None Apparent - Follow-Up Instructions Instructions: Per Surgeon
[2016-12-03] MEDS ORDERED: LIDOCAINE 5% CREAM 15gm TOP PRN (11:19)
[2016-12-03] MEDS ORDERED: POLYETHYL. GLYCOL 3350 BOTTLE 238 GM PO ONE (11:19)
[2016-12-03] MEDS ORDERED: Bisacodyl EC TAB 5 MG TABLET PO ONE (18:05)
[2016-12-03] MEDS ORDERED: MAGNESIUM CITRATE 296ml PO ONE (22:47)
[2016-12-04] MEDS: SALINE FLUSH 10ml SYRINGE IVF PRN ×2 (00:10→11:40)
[2016-12-04] MEDS: PANTOPRAZOLE IV 80 MG in NS 250ml 250 ML IV SCH ×2 (00:58→12:27)
--- NOTE | 2016-12-04 08:22 | Operative Note ---
DATE OF OPERATION 12/03/2016 PREOPERATIVE DIAGNOSES 1. Acute gastrointestinal tract bleeding with melena. 2. Severe anemia due to acute gastrointestinal tract blood loss. 3. Small hiatal hernia. 4. Gastroesophageal reflux disease. 5. Personal history of gastric ulcers found at esophagogastroduodenoscopy on . POSTOPERATIVE DIAGNOSES 1. Acute gastrointestinal tract bleeding with melena. 2. Severe anemia due to acute gastrointestinal tract blood loss. 3. Gastroesophageal reflux disease. 4. Normal findings at upper gastrointestinal tract at esophagogastroduodenoscopy today. OPERATION Esophagogastroduodenoscopy. SURGEON Dr. Javier [facility] ASA CLASS 4 FINDINGS Mucosa at esophagus appeared completely normal. There was no distal esophagitis. There were no esophageal erosions or ulcers. There were no esophageal varices. There were no Lee's esophagus changes at the distal esophagus. The gastric mucosa appeared normal everywhere. There was no gastritis. There were no gastric erosions. There were no gastric ulcers. The duodenal mucosa appeared normal. There was no duodenitis. There were no duodenal erosions. There were no duodenal ulcers. No bright red blood or old blood was seen anywhere at the upper gastrointestinal tract today. Findings were completely normal throughout the upper gastrointestinal tract today. I did not really see any significant hiatal hernia at the time of esophagogastroduodenoscopy today. No source for bleeding which would lead to severe anemia or melena was seen at the upper gastrointestinal tract today. There were no angiodysplasia lesions at the upper gastrointestinal tract. There were no tumors at the upper gastrointestinal tract. Findings were normal throughout the upper gastrointestinal tract. DESCRIPTION OF OPERATION The patient was brought to the endoscopy room. The patient was kept in his intensive care unit bed while in the endoscopy room. The patient was placed in left lateral recumbent position in his intensive care unit bed. The patient was premedicated with intravenous sedation medication administered by the nurse oil pumper. The Olympus upper GI endoscope was used. The upper GI endoscope was introduced into the esophagus. The upper GI endoscope was advanced down through the esophagus and stomach and into the duodenum. The tip of the upper GI endoscope was advanced down through the duodenum beyond the level of the duodenal bulb. The upper GI endoscope was slowly withdrawn out through the duodenum and through the pylorus back into the stomach. The duodenum was very carefully examined several times as this was done. The upper GI endoscope was then retroflexed and the gastroesophageal junction was viewed from below. The upper GI endoscope was straightened out. Stomach was examined further. All of the stomach was examined several times. The upper GI endoscope was then withdrawn out through the stomach and esophagus and removed from the patient. Findings throughout the procedure were as described above. The patient did continue to receive intravenous sedation medication administered by the nurse oil pumper throughout the operation. The patient did tolerate the operation well. MAGDALENE
[2016-12-04] MEDS: LIDOCAINE 1% INJ 10 MG, POTASSIUM CHLORIDE INJ 10 MEQ in NS 100 ML IV SCH ×2 (11:21→12:29)
--- NOTE | 2016-12-04 11:30 | Cardiology Progress Note ---
Subjective Principal diagnosis: Acute anemia, Atrial fibrillation with RVR <IrmaGaby lucia - 12/04/16 11:42> Interval history: He is in his bed in CCU. He denies cardiac complaints. <Hemant Thompson - 12/06/16 07:38> Rahul is seen in follow up for anemia and atrial fibrillation with RVR. <IrmaGaby Acevedo - 12/04/16 11:42> Exam Vital signs: Temperature 97.7 F 12/06/16 07:24 Pulse Rate 90 12/06/16 07:24 Respiratory Rate 18 12/06/16 07:24 Blood Pressure 144/79 H 12/06/16 07:24 Pulse Oximetry 97 12/06/16 07:24 <Hemant Thompson - 12/06/16 07:38> Temperature 96.5 F L 12/04/16 04:59 Pulse Rate 90 12/04/16 04:59 Respiratory Rate 14 12/04/16 04:59 Blood Pressure 136/65 12/04/16 04:59 Pulse Oximetry 98 12/04/16 04:59 <Irma,Gaby - 12/04/16 11:42> - Constitutional no acute distress, well nourished, cooperative <IrmaGaby davis - 12/04/16 11: 42> - Routine HEENT Exam Head: Present: normocephalic <IrmaGaby davis Kristina - 12/04/16 11:42> ENT: Present: mucous membranes moist <IrmaGaby davis Kristina - 12/04/16 11:42> - Routine Neck Exam Absent: JVD, carotid bruit <IrmaGaby davis Kristina - 12/04/16 11:42> - Routine Chest/Breast/Axilla Exam Chest wall: Absent: tenderness <IrmaGaby davis Kristina - 12/04/16 11:42> - Routine Respiratory Exam Present: CTA bilaterally. Absent: rales, wheezes <Gaby Solis - 12/04/16 11:42> - Routine Cardiovascular Exam Present: irregular rhythm. Absent: JVD <Gaby Solis - 12/04/16 11:42> - Routine Abdominal Exam Present: soft, normoactive bowel sounds <Gaby Solis - 12/04/16 11:42> - Routine Extremities Exam Present: no edema <Gaby Solis M - 12/04/16 11:42> - Routine Skin Exam Present: intact, dry, warm <Gaby Solis - 12/04/16 11:42> - Routine Neurological Exam Present: alert, oriented X3 <Gaby Solis - 12/04/16 11:42> - Routine Psychiatric Exam Present: normal affect, normal thought process <Gaby Solis - 12/04/16 11: 42> - Additional findings Additional findings: Laboratory Results - last 48 hr 12/01/16 12/02/16 12/02/16 14:06 16:04 16:04 WBC RBC Hgb 8.9 L Hct MCV MCH MCHC RDW Std Deviation Plt Count MPV Immature Gran % (Auto) Neut % (Auto) Lymph % (Auto) [place] % (Auto) Eos % (Auto) Baso % (Auto) Neut # (Auto) Lymph # (Auto) [place] # (Auto) Eos # (Auto) Baso # (Auto) Abs Immat Gran (auto) APTT 17.7 L Plt Funct P2Y12 Units Turbidity Sodium Potassium Chloride Carbon Dioxide Anion Gap BUN Creatinine GFR Calculation BUN/Creatinine Ratio Glucose Calculated Osmolality Calcium Magnesium Icterus Index Specimen Hemolysis Crossmatch (AHG) See Detail 12/02/16 12/03/16 12/03/16 22:43 04:36 04:36 WBC 6.0 RBC 3.04 L Hgb 8.7 L 8.8 L Hct 26.6 L MCV 87.5 MCH 28.9 MCHC 33.1 RDW Std Deviation 44.4 Plt Count 195 MPV 9.7 Immature Gran % (Auto) 0.2 Neut % (Auto) 72.4 H Lymph % (Auto) 15.4 L [place] % (Auto) 9.5 H Eos % (Auto) 1.8 Baso % (Auto) 0.7 Neut # (Auto) 4.3 Lymph # (Auto) 0.9 L [place] # (Auto) 0.6 Eos # (Auto) 0.1 Baso # (Auto) 0.0 Abs Immat Gran (auto) 0.01 APTT Plt Funct P2Y12 Units Turbidity < 20 Sodium 148 H Potassium 3.2 L Chloride 118 H Carbon Dioxide 21 L Anion Gap 9 BUN 29.0 H Creatinine 1.3 GFR Calculation 54 BUN/Creatinine Ratio 22 Glucose 90 Calculated Osmolality 290 H Calcium 8.4 Magnesium 2.4 H Icterus Index < 2 Specimen Hemolysis < 15 Crossmatch ([facility]) 12/03/16 12/03/16 12/03/16 04:36 10:03 15:53 WBC RBC Hgb 9.5 L 9.8 L Hct MCV MCH MCHC RDW Std Deviation Plt Count MPV Immature Gran % (Auto) Neut % (Auto) Lymph % (Auto) [place] % (Auto) Eos % (Auto) Baso % (Auto) Neut # (Auto) Lymph # (Auto) [place] # (Auto) Eos # (Auto) Baso # (Auto) Abs Immat Gran (auto) APTT Plt Funct P2Y12 Units 285 Turbidity Sodium Potassium Chloride Carbon Dioxide Anion Gap BUN Creatinine GFR Calculation BUN/Creatinine Ratio Glucose Calculated Osmolality Calcium Magnesium Icterus Index Specimen Hemolysis Crossmatch ([facility]) 12/03/16 12/04/16 12/04/16 21:41 04:56 04:56 WBC 6.4 RBC 2.97 L Hgb 8.6 L D 8.5 L Hct 26.4 L MCV 88.9 MCH 28.6 MCHC 32.2 RDW Std Deviation 46.4 Plt Count 196 MPV 9.4 Immature Gran % (Auto) 0.2 Neut % (Auto) 72.9 H Lymph % (Auto) 15.3 L [place] % (Auto) 8.5 Eos % (Auto) 2.5 Baso % (Auto) 0.6 Neut # (Auto) 4.6 Lymph # (Auto) 1.0 [place] # (Auto) 0.5 Eos # (Auto) 0.2 Baso # (Auto) 0.0 Abs Immat Gran (auto) 0.01 APTT Plt Funct P2Y12 Units Turbidity < 20 Sodium 147 H Potassium 3.3 L Chloride 116 H Carbon Dioxide 23 Anion Gap 8 BUN 17.0 Creatinine 1.2 GFR Calculation 59 BUN/Creatinine Ratio 14 Glucose 102 Calculated Osmolality 284 H Calcium 8.4 Magnesium Icterus Index < 2 Specimen Hemolysis < 15 Crossmatch ([facility]) Fentanyl (Fentanyl) 25 mcg IVP Q2H PRN PRN Reason: Pain Last Admin: 12/02/16 02:54 Dose: 25 mcg Pantoprazole Sodium 80 mg/ (Sodium Chloride) 250 mls @ 25 mls/hr IV .Q10H GOVIND PRN Reason: 8 MG/HR Last Infusion: 12/04/16 04:00 Dose: 8 mg/hr, 25 mls/hr Lidocaine HCl 10 mg/ Potassium Chloride 10 meq/ Sodium Chloride 100 mls @ 100 mls/hr IV .Q1H GOVIND Stop: 12/04/16 12:14 Lidocaine (Anecream5) 1 applic TOP PRN PRN Ondansetron HCl (Zofran) 4 mg IVP Q6H PRN PRN Reason: Nausea Last Admin: 12/04/16 00:10 Dose: 4 mg Sodium Chloride (Iv Flush) 10 - 80 ml IVF PRN PRN PRN Reason: Flushing Last Admin: 12/04/16 00:10 Dose: 10 ml Sodium Chloride (Normal Saline) 500 ml IV PRN PRN <Gaby Solis - 12/04/16 11:42> Assessment and Plan - Assessment and Plan (1) Paroxysmal atrial fibrillation Current visit: Yes Status: Acute (2) Cardiomyopathy Current visit: Yes Status: Acute (3) Atherosclerotic heart disease of [place] coronary artery without angina pectoris Current visit: Yes Status: Acute (4) Essential (primary) hypertension Current visit: Yes Status: Acute (5) Other cerebral infarction Current visit: Yes Status: Acute (6) Diastolic CHF Current visit: Yes Status: Acute (7) Anemia Current visit: Yes Status: Acute <Hemant Thompson - 12/06/16 07:38> (1) Diastolic CHF Current visit: Yes Status: Acute (2) Paroxysmal atrial fibrillation Current visit: Yes Status: Acute (3) Cardiomyopathy Current visit: Yes Status: Acute (4) Atherosclerotic heart disease of [place] coronary artery without angina pectoris Current visit: Yes Status: Acute (5) Essential (primary) hypertension Current visit: Yes Status: Acute (6) Other cerebral infarction Current visit: Yes Status: Acute (7) Anemia Current visit: Yes Status: Acute HGB 8.5 today, 3rd unit of PRBCs transfusing <Gaby Solis - 12/05/16 10:46> - Attestation Attestation Narrative: 12/06/16 07:38 Recommendation After examining the patient I agree with the above assessment. I am involved in the formulation of the patient's plan of care. <Hemant Thompson - 12/06/16 07:38> Hospital Course Summary Disclaimer: The visit summary below is not to be considered part of the above Progress Note. <Hemant Thompson - 12/06/16 07:38> The visit summary below is not to be considered part of the above Progress Note. <Gaby Solis - 12/04/16 11:42> Hospital Course: 12/01/16 18:40 Anemia: HGB 4.1 - Type and cross and transfuse 2 units per hospitalist and recheck Hgb - Stools positive for occult blood - Stop Aspirin, plavix and Pradaxa - PradaxaBind given per hospitalist Diastolic HF: Last EF on [facility] 03/20/16 was 60%, up from 38% - Will likely need diuresis after correction of anemia and hypotension - Hold home meds at this time: Will eventually restart home Coreg, lisinopril, Lasix AFib: RVR driven up by anemia, hypovolemia. - should resolve with transfusions and IVF resuscitation Thank you for allowing us to participate in the care of this patient, we will follow along with you 12/04/16 HGB 8.5 today, 3rd unit of PRBCs transfusing <Gaby Solis - 12/05/16 11:12>
[2016-12-04] MEDS: NS FLUSH BAG 500ml IV PRN ×2 (11:41→15:04)
--- NOTE | 2016-12-04 13:36 | Progress Note ---
Subjective: The patient is seen this afternoon accompanied by his daughter. He states he is feeling okay other than having a lot of bowel movements recently which were incontinent. He has recently finished a prep for colonoscopy and colonoscopy is planned for this afternoon. He denies any chest pain or abdominal pain. He denies shortness of breath. He denies nausea or vomiting. He denies any pain. Objective Vital signs: Temperature 98.0 F 12/04/16 08:00 Pulse Rate 96 12/04/16 11:00 Respiratory Rate 24 12/04/16 11:00 Blood Pressure 94/54 12/04/16 11:00 Pulse Oximetry 94 12/04/16 11:00 Rhythm: Atrial Fibrillation with RVR Height/Weight/BMI: Weight 79.8 kg Comments: Patient had multiple stools yesterday and today and they were reportedly brown or yellow green. Weight is 79.8 kg. Admit weight I think was erroneous that 101 kg. GEN-alert, no acute distress HEENT-clear anicteric, pupils are equal, oropharynx is moist NECK-supple CV-irregularly irregular CHEST-clear to auscultation bilaterally ABD-soft, nontender with positive bowel sounds -no [place] EXT-no edema, SCDs are on NEURO-chronic lower extremity weakness SKIN-warm and dry and without rashes Results - Labs CBC & Chem 7: 12/04/16 04:56 12/04/16 04:56 Labs: Magnesium was 2.4 yesterday. Troponin today is normal at 0.078. Assessment and Plan Assessment and Plan: 12/04/2016 Impression Acute blood loss anemia. Hemoglobin 4 on admission (transfused 4 units) and 8.5 today. EGD normal 12/03/2016. Plan for colonoscopy today. Chronically anticoagulated with her back for paroxysmal atrial fibrillation- Pradaxa is on hold. Patient received reversal agent on admission. Chronic antiplatelet agent with aspirin and Plavix for coronary artery disease and recent stent in February 2016. Aspirin and Plavix are on hold Paroxysmal atrial fibrillation -rate controlled with Coreg on hold Coronary artery disease-asymptomatic history of cardiomyopathy, systolic heart failure has improved and EF is 60%. Hypokalemia with normal magnesium Hypertension-fair control off medication Dementia Nocturnal hypoxemia Plan Colonoscopy today. Further plan depending upon results. Continue to monitor hemoglobin and continue to remain off anticoagulants, antiplatelet agents for now. Resume Coreg when okay with Dr. Thompson. Patient appears cardiovascularly stable at this point. Replace potassium IV while nothing by mouth for colonoscopy Possible transfer to the floor depending upon results of colonoscopy. Continue oxygen at night for chronic nocturnal hypoxemia Hospital Course Summary Disclaimer: The visit summary below is not to be considered part of the above Progress Note. Hospital Course: 12/01/16 18:40 Anemia: HGB 4.1 - Type and cross and transfuse 2 units per hospitalist and recheck Hgb - Stools positive for occult blood - Stop Aspirin, plavix and Pradaxa - PradaxaBind given per hospitalist Diastolic HF: Last EF on [facility] 03/20/16 was 60%, up from 38% - Will likely need diuresis after correction of anemia and hypotension - Hold home meds at this time: Will eventually restart home Coreg, lisinopril, Lasix AFib: RVR driven up by anemia, hypovolemia. - should resolve with transfusions and IVF resuscitation Thank you for allowing us to participate in the care of this patient, we will follow along with you 12/03/2016 1. Acute blood loss anemia -Has been transfused 4 PRBCs, -Hgb stable at present. -Off plavix, ASA and Pradaxa -Has been given Praxbind -Gen surgery consulted and plans for EGD Sun/Mon depending on P2Y12 (285 today) -On protonix gtt. -He could probably eat if surgery not planning on EGD today. 2. H/O HF -h/o Systolic and diastolic HF. -Systolic better by HC to 60% 2016. -will resume coreg when BP more consistently higher. 3. PAF -Followed by Dr. Reyes -Off OAC for now due to GIB -Rate control, resume Coreg when BP more stable 4. MACHINE II CUTTER -Systolic function normalized -Resume coreg and KAUSHAL I when BP better -Dr. Reyes following. 5. CAD -Recent (Feb 2016) stent to Diag artery -Holding plavix and ASA due to GIB -No complaints of angina 6. HTN -BP variable. Will resume coreg when consistently higher. 7. Hypokalemia -As pt in NPO, will replace IV -Recheck in am. 8. Dementia 9. Prophylaxis with SCDs, protonix 10. Nocturnal hypoxia -On oxygen 2 liters. 11. DNR Patient underwent EGD today without any finding of a source of bleed. Dr. Herrera plans on doing a colonoscopy tomorrow.
[2016-12-04] MEDS ORDERED: PROPOFOL 20 ML ONE (15:57)
--- NOTE | 2016-12-04 16:03 | General Surgery Procedure Note ---
Date of Procedure: 12/04/16 Surgeon: Javier Postoperative Diagnosis: Acute GI tract bleeding Procedure: Colonoscopy Estimated Blood Loss: See Anesthesia Record.
--- NOTE | 2016-12-04 17:19 | Anesthesia Postoperative Note ---
- Date and Time Date: 12/04/16 Time: 17:19 - Status Patient Participated in Evaluation: Patient Participated in Person Vital Signs: Temperature 98.4 F 12/04/16 16:44 Pulse Rate 95 12/04/16 16:40 Respiratory Rate 16 12/04/16 16:40 Blood Pressure 130/73 12/04/16 16:40 Pulse Oximetry 95 12/04/16 16:40 Respiratory Function: Airway Patent, Regular Respirations Cardiovascular Function: Irregular Pulse EKG: A-fib Mental Status: Alert and Oriented Pain Intensity: 0 Hydration: IV Infusing Complications During Recover: None Apparent - Follow-Up Instructions Instructions: Per Surgeon
[2016-12-05] MEDS: SALINE FLUSH 10ml SYRINGE IVF PRN (05:06)
--- NOTE | 2016-12-05 08:33 | Operative Note ---
DATE OF OPERATION 12/04/2016 PREOPERATIVE DIAGNOSES 1. Recent acute gastrointestinal tract bleeding with melena. 2. Sigmoid colon diverticulosis. 3. Internal and external hemorrhoids. POSTOPERATIVE DIAGNOSES 1. Recent acute gastrointestinal tract bleeding with melena. 2. Sigmoid colon diverticulosis. 3. Internal and external hemorrhoids. 4. Long redundant colon with inability to reach cecum with colonoscope. OPERATION Colonoscopy. SURGEON Dr. Javier KRUGER TIVA ASA CLASS 4 FINDINGS The patient does have a long redundant colon. The tip of the colonoscope was only able to be advanced up to about the hepatic flexure of the colon with the colonoscope inserted all way up to the hub of the colonoscope. The colonoscope was not able to be advanced further proximally beyond the hepatic flexure despite multiple attempts. The patient did have some liquid yellow- green stool in the colon. No bright red blood or old blood was seen anywhere at the colon or rectum at the time of the procedure today. The recent acute gastrointestinal tract bleeding appeared to have completely stopped prior to the colonoscopy. Mucosa at the transverse colon, descending colon, sigmoid colon and rectum appeared normal. There were no colon or rectal tumors in that portion of the colon which was able to be examined and at the rectum. There were no polyps in that portion of the colon which was able to be examined and at the rectum. No angiodysplasia lesions were seen in the portion of the colon which was able to be examined. There was no evidence of any inflammatory bowel disease or any type of colitis in the portion of the colon that was able to be examined or at the rectum. The patient does have some sigmoid colon diverticulosis. The patient does have some internal and external hemorrhoids. DESCRIPTION OF OPERATION The patient was brought to the endoscopy room. The patient was placed on a cart in the endoscopy room. The patient was placed in left lateral recumbent position on the cart in the endoscopy room. The patient was premedicated with intravenous sedation medication administered by the nurse adhesive bandage making operator. The Olympus colonoscope was used. The colonoscope was introduced into the rectum. The colonoscope was advanced up through the rectum and colon all the way up to the hepatic flexure. The colonoscope was inserted all the way up to the hub of the colonoscope at this time. The colonoscope was withdrawn to take out loops and readvanced with splinting. This was attempted multiple times. The tip of the colonoscope could still not be advanced beyond the hepatic flexure with all these maneuvers. The colonoscope was completely withdrawn out through the colon and rectum and removed from the patient. The patient was changed from left lateral recumbent position to supine position on the cart. The colonoscope was reinserted into the rectum. The colonoscope was once again advanced all the way up to the hepatic flexure of the colon. The colonoscope was advanced all the way up to the hub of the colonoscope as the tip of the colonoscope reached the hepatic flexure. The colonoscope was again withdrawn to take out loops and readvanced with splinting. This was performed over and over again. Despite all the attempts at splinting, the tip of the colonoscope was never able to be advanced much beyond the hepatic flexure. The colonoscope was eventually just withdrawn out through the colon and rectum and removed from the patient. Digital rectal examination was performed. Findings throughout procedure were as described above. The patient did continue to receive intravenous sedation medication administered by the nurse adhesive bandage making operator throughout the operation. The patient did appear to tolerate the operation well. The patient was transferred from the endoscopy room back to his room in the Intensive Care Unit in stable condition. MAGDALENE
[2016-12-05] MEDS: SERTRALINE 100 MG TABLET PO SCH (10:22)
--- NOTE | 2016-12-05 10:24 | Fluoroscopy Report ---
Indication:gi bleed, unable to see ascending colon on C-scope Procedure:FL barium enema XF SINGLE CONTRAST COLON: Using fluoroscopic guidance, a single contrast barium enema was attempted. Unfortunately, the patient was unable to retain the enema tip. After several attempts to hold the enema tip in place, only a small amount of contrast is visualized in the rectosigmoid area before the patient pushed the tip out of the rectum. It was elected at this time to stop the procedure. The visualized portions of the rectosigmoid area are negative. Impression: Unsuccessful attempt of a barium enema as described above. Fluoroscopy dose: 26.84 mGy (Cumulative air kerma) Eric Herndon RPA/MO performed this under my direct supervision. .
--- NOTE | 2016-12-05 13:36 | Cardiology Progress Note ---
Subjective Principal diagnosis: Acute anemia, Atrial fibrillation with RVR <Gaby Solis - 12/05/16 13:37> Interval history: Rahul is seen in follow up for anemia and atrial fibrillation with RVR. He denies chest pain or pressure, denies dyspnea or other cardiac complaints <Gaby Solis - 12/05/16 13:37> Exam Vital signs: Temperature 97.7 F 12/06/16 07:24 Pulse Rate 90 12/06/16 07:24 Respiratory Rate 18 12/06/16 07:24 Blood Pressure 144/79 H 12/06/16 07:24 Pulse Oximetry 97 12/06/16 07:24 <Hemant Thompson - 12/06/16 12:24> Temperature 97.6 F 12/05/16 08:58 Pulse Rate 93 12/05/16 08:58 Respiratory Rate 20 12/05/16 08:58 Blood Pressure 137/74 12/05/16 08:58 Pulse Oximetry 96 12/05/16 08:58 <Irma,Gaby - 12/05/16 13:37> - Constitutional no acute distress, well nourished, cooperative <IrmaGaby davis 12/05/16 13: 37> - Routine HEENT Exam Head: Present: normocephalic <IrmaGaby davis [facility] 12/05/16 13:37> ENT: Present: mucous membranes moist <IrmaGaby davis [facility] 12/05/16 13:37> - Routine Neck Exam Absent: JVD, carotid bruit <IrmaGaby davis 12/05/16 13:37> - Routine Chest/Breast/Axilla Exam Chest wall: Absent: tenderness <IrmaGaby davis 12/05/16 13:37> - Routine Respiratory Exam Present: CTA bilaterally. Absent: rales, wheezes <IrmaGaby davis [facility] 12/05/16 13:37> - Routine Cardiovascular Exam Present: no murmur, irregular rhythm. Absent: JVD <Gaby Solis Kristina 12/05/16 13:37> - Routine Abdominal Exam Present: soft, normoactive bowel sounds <IrmaGaby davis [facility] 12/05/16 13:37> - Routine Extremities Exam Present: no edema <IrmaGaby davis M - 12/05/16 13:37> - Routine Skin Exam Present: intact, dry, warm <Gaby Solis M - 12/05/16 13:37> - Routine Neurological Exam Present: alert, oriented X3 <Gaby Solis M - 12/05/16 13:37> - Routine Psychiatric Exam Present: normal affect, normal thought process <Gaby Solis M - 12/05/16 13: 37> - Additional findings Additional findings: Laboratory Results - last 48 hr 12/01/16 12/03/16 12/03/16 14:06 15:53 21:41 WBC RBC Hgb 9.8 L 8.6 L D Hct MCV MCH MCHC RDW Std Deviation Plt Count MPV Immature Gran % (Auto) Neut % (Auto) Lymph % (Auto) [place] % (Auto) Eos % (Auto) Baso % (Auto) Neut # (Auto) Lymph # (Auto) [place] # (Auto) Eos # (Auto) Baso # (Auto) Abs Immat Gran (auto) Neutrophils % (Manual) Lymphocytes % (Manual) Monocytes % (Manual) Eosinophils % (Manual) Basophils % (Manual) Neutrophils # (Manual) Lymphocytes # (Manual) Monocytes # (Manual) Eosinophils # (Manual) Basophils # (Manual) Anisocytosis RBC Morph Comment Turbidity Sodium Potassium Chloride Carbon Dioxide Anion Gap BUN Creatinine GFR Calculation BUN/Creatinine Ratio Glucose Calculated Osmolality Calcium Icterus Index Troponin I Specimen Hemolysis Crossmatch (AHG) See Detail 12/04/16 12/04/16 12/04/16 04:51 04:56 04:56 WBC 6.4 RBC 2.97 L Hgb 8.5 L Hct 26.4 L MCV 88.9 MCH 28.6 MCHC 32.2 RDW Std Deviation 46.4 Plt Count 196 MPV 9.4 Immature Gran % (Auto) 0.2 Neut % (Auto) 72.9 H Lymph % (Auto) 15.3 L [place] % (Auto) 8.5 Eos % (Auto) 2.5 Baso % (Auto) 0.6 Neut # (Auto) 4.6 Lymph # (Auto) 1.0 [place] # (Auto) 0.5 Eos # (Auto) 0.2 Baso # (Auto) 0.0 Abs Immat Gran (auto) 0.01 Neutrophils % (Manual) Lymphocytes % (Manual) Monocytes % (Manual) Eosinophils % (Manual) Basophils % (Manual) Neutrophils # (Manual) Lymphocytes # (Manual) Monocytes # (Manual) Eosinophils # (Manual) Basophils # (Manual) Anisocytosis RBC Morph Comment Turbidity < 20 Sodium 147 H Potassium 3.3 L Chloride 116 H Carbon Dioxide 23 Anion Gap 8 BUN 17.0 Creatinine 1.2 GFR Calculation 59 BUN/Creatinine Ratio 14 Glucose 102 Calculated Osmolality 284 H Calcium 8.4 Icterus Index < 2 Troponin I 0.078 Specimen Hemolysis < 15 < 15 Crossmatch (AHG) 12/05/16 12/05/16 05:05 05:05 WBC 5.7 RBC 2.81 L Hgb 8.0 L Hct 25.0 L MCV 89.0 MCH 28.5 MCHC 32.0 RDW Std Deviation 46.6 Plt Count 159 MPV 10.0 Immature Gran % (Auto) Neut % (Auto) Lymph % (Auto) [place] % (Auto) Eos % (Auto) Baso % (Auto) Neut # (Auto) Lymph # (Auto) [place] # (Auto) Eos # (Auto) Baso # (Auto) Abs Immat Gran (auto) Neutrophils % (Manual) 66.0 Lymphocytes % (Manual) 16.0 L Monocytes % (Manual) 12.0 H Eosinophils % (Manual) 5.0 H Basophils % (Manual) 1.0 Neutrophils # (Manual) 3.8 Lymphocytes # (Manual) 0.9 L Monocytes # (Manual) 0.7 Eosinophils # (Manual) 0.3 Basophils # (Manual) 0.1 Anisocytosis 1+ RBC Morph Comment Abnormal Turbidity < 20 Sodium 145 H Potassium 3.5 L Chloride 117 H Carbon Dioxide 23 Anion Gap 5 BUN 13.0 Creatinine 1.0 D GFR Calculation 73 BUN/Creatinine Ratio 13 Glucose 89 Calculated Osmolality 278 Calcium 7.5 L D Icterus Index < 2 Troponin I Specimen Hemolysis 50 H Crossmatch (AHG) Acetaminophen (Tylenol Arthritis) 650 mg PO Q6H PRN PRN Reason: P Last Admin: 12/05/16 11:09 Dose: 650 mg Carvedilol (Coreg) 12.[facility] Clopidogrel Bisulfate (Plavix) 75 mg PO DAILY GOVIND Lidocaine (Anecream5) 1 applic TOP PRN PRN Ondansetron HCl (Zofran) 4 mg IVP Q6H PRN PRN Reason: Nausea Last Admin: 12/04/16 00:10 Dose: 4 mg Sertraline HCl (Zoloft) 100 mg PO DAILY GOVIND Last Admin: 12/05/16 10:22 Dose: 100 mg Sodium Chloride (Iv Flush) 10 - 80 ml IVF PRN PRN PRN Reason: Flushing Last Admin: 12/05/16 05:06 Dose: 30 ml Sodium Chloride (Normal Saline) 500 ml IV PRN PRN Last Admin: 12/04/16 11:41 Dose: 500 ml <Gaby Solis - 12/05/16 13:37> Assessment and Plan - Assessment and Plan (1) Paroxysmal atrial fibrillation Current visit: Yes Status: Acute (2) Cardiomyopathy Current visit: Yes Status: Acute (3) Atherosclerotic heart disease of [place] coronary artery without angina pectoris Current visit: Yes Status: Acute (4) Essential (primary) hypertension Current visit: Yes Status: Acute (5) Other cerebral infarction Current visit: Yes Status: Acute (6) Diastolic CHF Current visit: Yes Status: Acute (7) Anemia Current visit: Yes Status: Acute <Hemant Thompson - 12/06/16 12:24> (1) Diastolic CHF Current visit: Yes Status: Acute (2) Paroxysmal atrial fibrillation Current visit: Yes Status: Acute (3) Cardiomyopathy Current visit: Yes Status: Acute (4) Atherosclerotic heart disease of [place] coronary artery without angina pectoris Current visit: Yes Status: Acute (5) Essential (primary) hypertension Current visit: Yes Status: Acute (6) Other cerebral infarction Current visit: Yes Status: Acute (7) Anemia Current visit: Yes Status: Acute Hemoglobin 8.0 today. Continue to hold pradaxa. Plavix restarted, watch for bleeding. <Gaby Solis - 12/06/16 07:25> - Attestation Attestation Narrative: 12/06/16 12:24 Recommendation After examining the patient I agree with the above assessment. I am involved in the formulation of the patient's plan of care. <Hemant Thompson - 12/06/16 12:24> Hospital Course Summary Disclaimer: The visit summary below is not to be considered part of the above Progress Note. <Hemant Thompson - 12/06/16 12:24> The visit summary below is not to be considered part of the above Progress Note. <Gaby Solis - 12/05/16 13:37> Hospital Course: 12/01/16 18:40 Anemia: HGB 4.1 - Type and cross and transfuse 2 units per hospitalist and recheck Hgb - Stools positive for occult blood - Stop Aspirin, plavix and Pradaxa - PradaxaBind given per hospitalist Diastolic HF: Last EF on [facility] 03/20/16 was 60%, up from 38% - Will likely need diuresis after correction of anemia and hypotension - Hold home meds at this time: Will eventually restart home Coreg, lisinopril, Lasix AFib: RVR driven up by anemia, hypovolemia. - should resolve with transfusions and IVF resuscitation Thank you for allowing us to participate in the care of this patient, we will follow along with you 12/04/16 HGB 8.5 today, 3rd unit of PRBCs transfusing 12/05/16 13:37 Hemoglobin 8.0 today. Continue to hold pradaxa. Plavix restarted, watch for bleeding. 12/06/16 07:26 <Gaby Solis - 12/06/16 07:26>
[2016-12-05] MEDS: CLOPIDOGREL 75 MG TABLET PO SCH (14:18)
[2016-12-05] MEDS: CARVEDILOL 12.5 MG TABLET PO SCH (17:21)
--- NOTE | 2016-12-05 22:50 | Progress Note ---
Subjective: The patient was seen earlier today accompanied by his daughter. He stated he was feeling well. Barium enema was attempted but not successful. Patient denies any abdominal pain. He denies any chest pain. He denies any shortness of breath. He denies any lightheadedness. He denies dysuria. He has had no further rectal bleeding. Objective Vital signs: Temperature 98.8 F 12/05/16 21:01 Pulse Rate 86 12/05/16 21:01 Respiratory Rate 18 12/05/16 21:01 Blood Pressure 119/70 12/05/16 21:01 Pulse Oximetry 97 12/05/16 21:01 Rhythm: Atrial Fibrillation with RVR Height/Weight/BMI: Weight 82.3 kg Comments: GEN-alert, mild dementia, no acute distress HEENT-sclera anicteric, oropharynx is moist NECK-supple CV-regular rate and rhythm CHEST-clear to auscultation bilaterally ABD-soft, nontender with positive bowel sounds -no [place] EXT-no edema NEURO-chronic leg weakness of undetermined etiology SKIN-warm and dry and without rashes Results - Labs CBC & Chem 7: 12/05/16 05:05 12/05/16 05:05 Assessment and Plan Assessment and Plan: 12/05/2016 Impression Acute blood loss anemia. Hemoglobin 4 on admission (transfused 4 units) and 8.0 today. EGD normal 12/03/2016. Colonoscopy normal on 12/04/2016, however unable to see the ascending colon secondary to very large, long redundant colon. Attempted barium enema today which was also unsuccessful. Chronically anticoagulated with pradaxa for paroxysmal atrial fibrillation- Pradaxa is still on hold. Patient received reversal agent on admission. Chronic antiplatelet agent with aspirin and Plavix for coronary artery disease and recent stent in February 2016. Paroxysmal atrial fibrillation -rate controlled with Coreg Coronary artery disease-asymptomatic history of cardiomyopathy, systolic heart failure has improved and EF is 60%. Hypokalemia with normal magnesium Hypertension-fair control Dementia Nocturnal hypoxemia-chronically on 2 L at night Plan After discussion with Dr. Eric Diehl, Dr. Herrera and Dr. Thompson, the decision was made to obtain a CT abdomen and pelvis with contrast in 2 or 3 days after barium has passed to look for a colonic mass that might have been missed in the ascending colon which we were unable to see by colonoscopy or barium enema. In the meantime, will restart Plavix and monitor on telemetry and continue to monitor hemoglobin. Discussed plans with the patient and his daughter and they are in agreement. Potassium replaced orally Coreg restarted today. Repeat CBC and basic metabolic profile tomorrow. Restart a regular diet. Greater than 40 minutes of time spent seeing and evaluating the patient, talking with consultants, and determining care plan. Hospital Course Summary Disclaimer: The visit summary below is not to be considered part of the above Progress Note. Hospital Course: 12/01/16 18:40 Anemia: HGB 4.1 - Type and cross and transfuse 2 units per hospitalist and recheck Hgb - Stools positive for occult blood - Stop Aspirin, plavix and Pradaxa - PradaxaBind given per hospitalist Diastolic HF: Last EF on [facility] 03/20/16 was 60%, up from 38% - Will likely need diuresis after correction of anemia and hypotension - Hold home meds at this time: Will eventually restart home Coreg, lisinopril, Lasix AFib: RVR driven up by anemia, hypovolemia. - should resolve with transfusions and IVF resuscitation Thank you for allowing us to participate in the care of this patient, we will follow along with you 12/04/16 HGB 8.5 today, 3rd unit of PRBCs transfusing 12/04/2016 Impression Acute blood loss anemia. Hemoglobin 4 on admission (transfused 4 units) and 8.5 today. EGD normal 12/03/2016. Plan for colonoscopy today. Chronically anticoagulated with her back for paroxysmal atrial fibrillation- Pradaxa is on hold. Patient received reversal agent on admission. Chronic antiplatelet agent with aspirin and Plavix for coronary artery disease and recent stent in February 2016. Aspirin and Plavix are on hold Paroxysmal atrial fibrillation -rate controlled with Coreg on hold Coronary artery disease-asymptomatic history of cardiomyopathy, systolic heart failure has improved and EF is 60%. Hypokalemia with normal magnesium Hypertension-fair control off medication Dementia Nocturnal hypoxemia Plan Colonoscopy today. Further plan depending upon results. Continue to monitor hemoglobin and continue to remain off anticoagulants, antiplatelet agents for now. Resume Coreg when okay with Dr. Thompson. Patient appears cardiovascularly stable at this point. Replace potassium IV while nothing by mouth for colonoscopy Possible transfer to the floor depending upon results of colonoscopy. Continue oxygen at night for chronic nocturnal hypoxemia 12/05/16 13:37 Hemoglobin 8.0 today. Continue to hold pradaxa, aspirin and plavix 12/05/16 22:45
[2016-12-06] MEDS: CLOPIDOGREL 75 MG TABLET PO SCH (08:57)
[2016-12-06] MEDS: SERTRALINE 100 MG TABLET PO SCH (08:58)
[2016-12-06] MEDS: CARVEDILOL 12.5 MG TABLET PO SCH ×2 (08:58→17:42)
--- NOTE | 2016-12-06 15:31 | Progress Note ---
Subjective: F/U: Severe anemia Notes decreased appetite and mild nausea. Oral drive minimal. Some fullness to abdomen. Passing flatus, not much stool. Breathing doing well-not feeling SOA or congested. No pain with breathing. No chest pressure or heaviness. Objective Vital signs: Temperature 99.4 F 12/06/16 15:00 Pulse Rate 86 12/06/16 15:00 Respiratory Rate 20 12/06/16 15:00 Blood Pressure 144/87 H 12/06/16 15:00 Pulse Oximetry 96 12/06/16 15:00 Rhythm: Atrial Fibrillation with RVR Height/Weight/BMI: Weight 83.4 kg - Constitutional Present: well nourished, well developed, cooperative - Routine HEENT Exam Head: Present: normocephalic, atraumatic Eye: Present: EOMI, PERRL ENT: Present: mucous membranes moist - Routine Respiratory Exam Present: CTA bilaterally. Absent: rales, respiratory distress, rhonchi, wheezes - Routine Cardiovascular Exam Present: no murmur, irregular rhythm, irregularly irregular - Routine Abdominal Exam Present: soft, non distended, non tender. Absent: normoactive bowel sounds ( Decreased ), guarding - Routine Extremities Exam Present: no edema, pulses intact. Absent: cyanosis, clubbing - Routine Musculoskeletal Exam Musculoskeletal: Present: no clubbing or cyanosis - Routine Skin Exam Present: dry, warm - Routine Neurological Exam Present: alert, oriented X3, CN II-XII intact, moving all extremities, vision grossly intact, hearing grossly intact. Absent: motor deficit - Routine Psychiatric Exam Present: normal affect, normal thought process, cooperative. Absent: anxious, agitated Results - Labs CBC & Chem 7: 12/06/16 04:32 12/06/16 04:32 Assessment and Plan DVT Prophylaxis: SCD's GI Prophylaxis: Protonix Resuscitation Status: Do Not Resuscitate Assessment and Plan: Impression Acute anemia. Hemoglobin 4 on admission (transfused 4 units) EGD normal 12/03/2016. Colonoscopy normal on 12/04/2016, however unable to see the ascending colon secondary to very large, long redundant colon. Attempted barium enema 12/05/16 which was also unsuccessful. Chronically anticoagulated with pradaxa for paroxysmal atrial fibrillation- Pradaxa is still on hold. Patient received reversal agent on admission. Chronic antiplatelet agent with aspirin and Plavix for coronary artery disease and recent stent in February 2016. Paroxysmal atrial fibrillation -rate controlled with Coreg Coronary artery disease-asymptomatic history of cardiomyopathy, systolic heart failure has improved and EF is 60%. Hypokalemia (Not POA) Hypertension-fair control Dementia Nocturnal hypoxemia-chronically on 2 L at night Plan Medically doing well. HR and BP controlled. Hemoglobin 8.[address]ticip[address] ab/pelvis on 12/08 to check for colonic mass. Replace potassium. Monitor lab. Time spent with patient care 25 minutes. - Time spent with patient Time with patient PN: 25 minutes Hospital Course Summary Disclaimer: The visit summary below is not to be considered part of the above Progress Note. Hospital Course: 12/01/16 - Admission to CCU Impression Acute anemia Hypotension Presumed Upper GI bleed Chronic anticoagulation with Pradaxa Chronic antiplatelet use with Plavix and aspirin for stent placed in February 2016 Chronic A. fib-currently A. fib with RVR Coronary artery disease-currently asymptomatic mild dementia History of hypertension Chronic nocturnal hypoxia for which he uses 2 L of oxygen Class III systolic heart failure Plan Admit to CCU. Full code per patient's son who is DPOA. Type and cross 2 units of blood and stay 2 units ahead. Give 2 units of blood now. Praxbind to reverse Pradaxa now Protonix 80 mg IV followed by protonix drip Nothing by mouth Q6 hour hemoglobin Hold all by mouth meds SCDs for DVT prophylaxis Consult Dr. Herrera regarding GI bleed/EGD Consult Dr. Thompson regarding underlying coronary artery disease Chest x-ray Check a lipid function test now and in the morning 12/02/16 Transfuse 4 units yesterday - Hemoglobin improved to 9.6 12/03/[address] Herrera - no pathology found to cause anemia. 12/04/[address] Herrera - Long redundant colon, unable to reach cecum. Transfer to medical floor. 12/05/[address] Eric Diehl, Dr. Herrera and Dr. Thompson, the decision was made to obtain a CT abdomen and pelvis with contrast in 2 or 3 days after barium has passed to look for a colonic mass that might have been missed in the ascending colon which we were unable to see by colonoscopy or barium enema. In the meantime, will restart Plavix and monitor on telemetry and continue to monitor hemoglobin. Potassium replaced orally. Coreg restarted today. Restart a regular diet. 12/06/16 Medically doing well. HR and BP controlled. Hemoglobin 8.[address]ticip[address] ab/pelvis on 12/08 to check for colonic mass. Replace potassium. Monitor lab.
--- NOTE | 2016-12-06 15:51 | Cardiology Progress Note ---
Subjective Principal diagnosis: Acute anemia, Atrial fibrillation with RVR <Gaby Solis - 12/06/16 15:51> Interval history: Rahul is seen in follow up for anemia and atrial fibrillation with RVR. He is in his bed, he denies chest pain, palpitations, or dyspnea. <Gaby Solis - 12/06/16 15:51> Exam Vital signs: Temperature 96.5 F L 12/07/16 15:25 Pulse Rate 84 12/07/16 15:25 Respiratory Rate 16 12/07/16 15:25 Blood Pressure 147/71 H 12/07/16 15:25 Pulse Oximetry 98 12/07/16 15:25 <Hemant Thompson - 12/07/16 17:51> Temperature 99.4 F 12/06/16 15:00 Pulse Rate 86 12/06/16 15:00 Respiratory Rate 20 12/06/16 15:00 Blood Pressure 144/87 H 12/06/16 15:00 Pulse Oximetry 96 12/06/16 15:00 <IrmaGaby Acevedo - 12/06/16 15:51> - Constitutional no acute distress, well nourished, cooperative <IrmaGaby 12/06/16 15: 51> - Routine HEENT Exam Head: Present: normocephalic <IrmaGaby davis 12/06/16 15:51> ENT: Present: mucous membranes moist <IrmaGaby Acevedo 12/06/16 15:51> - Routine Neck Exam Absent: JVD, carotid bruit <IrmaGaby davis Kristina 12/06/16 15:51> - Routine Chest/Breast/Axilla Exam Chest wall: Absent: tenderness <IrmaGaby davis Kristina 12/06/16 15:51> - Routine Respiratory Exam Present: CTA bilaterally. Absent: rales, wheezes <IrmaGaby davis Kristina 12/06/16 15:51> - Routine Cardiovascular Exam Present: no murmur, irregular rhythm. Absent: JVD <Gaby Solis Kristina 12/06/16 15:51> - Routine Abdominal Exam Present: soft, normoactive bowel sounds <Gaby Soils Kristina 12/06/16 15:51> - Routine Extremities Exam Present: no edema <Gaby Solis M - 12/06/16 15:51> - Routine Skin Exam Present: intact, dry, warm <Gaby Solis M - 12/06/16 15:51> - Routine Neurological Exam Present: alert, oriented X3 <Gaby Solis M - 12/06/16 15:51> - Routine Psychiatric Exam Present: normal affect, normal thought process <Gaby Solis M - 12/06/16 15: 51> - Additional findings Additional findings: Laboratory Results - last 24 hr 12/06/16 12/06/16 04:32 04:32 WBC 6.1 RBC 2.97 L Hgb 8.4 L Hct 26.6 L MCV 89.6 MCH 28.3 MCHC 31.6 RDW Std Deviation 46.4 Plt Count 201 MPV 9.9 Immature Gran % (Auto) 0.2 Neut % (Auto) 66.9 H Lymph % (Auto) 15.3 L [place] % (Auto) 8.9 Eos % (Auto) 8.2 H Baso % (Auto) 0.5 Neut # (Auto) 4.1 Lymph # (Auto) 0.9 L [place] # (Auto) 0.5 Eos # (Auto) 0.5 Baso # (Auto) 0.0 Abs Immat Gran (auto) 0.01 Turbidity < 20 Sodium 144 Potassium 3.4 L Chloride 112 H Carbon Dioxide 24 Anion Gap 8 BUN 11.0 Creatinine 1.1 GFR Calculation 65 BUN/Creatinine Ratio 10 Glucose 97 Calculated Osmolality 276 Calcium 7.9 L Icterus Index < 2 Specimen Hemolysis < 15 Acetaminophen (Tylenol Arthritis) 650 mg PO Q6H PRN PRN Reason: P Last Admin: 12/05/16 11:09 Dose: 650 mg Carvedilol (Coreg) 12.5 mg PO BIDWM [facility] Last Admin: 12/06/16 08:58 Dose: 12.5 mg Clopidogrel Bisulfate (Plavix) 75 mg PO DAILY [facility] Last Admin: 12/06/16 08:57 Dose: 75 mg Lidocaine (Anecream5) 1 applic TOP PRN PRN Ondansetron HCl (Zofran) 4 mg IVP Q6H PRN PRN Reason: Nausea Last Admin: 12/04/16 00:10 Dose: 4 mg Sertraline HCl (Zoloft) 100 mg PO DAILY [facility] Last Admin: 12/06/16 08:58 Dose: 100 mg Sodium Chloride (Iv Flush) 10 - 80 ml IVF PRN PRN PRN Reason: Flushing Last Admin: 12/05/16 05:06 Dose: 30 ml Sodium Chloride (Normal Saline) 500 ml IV PRN PRN Last Admin: 12/04/16 11:41 Dose: 500 ml <Gaby Solis - 12/06/16 15:51> Assessment and Plan - Assessment and Plan (1) Paroxysmal atrial fibrillation Current visit: Yes Status: Acute (2) Cardiomyopathy Current visit: Yes Status: Acute (3) Atherosclerotic heart disease of [place] coronary artery without angina pectoris Current visit: Yes Status: Acute (4) Essential (primary) hypertension Current visit: Yes Status: Acute (5) Other cerebral infarction Current visit: Yes Status: Acute (6) Diastolic CHF Current visit: Yes Status: Acute (7) Anemia Current visit: Yes Status: Acute <Hemant Thompson - 12/07/16 17:51> (1) Paroxysmal atrial fibrillation Current visit: Yes Status: Acute (2) Cardiomyopathy Current visit: Yes Status: Acute (3) Atherosclerotic heart disease of [place] coronary artery without angina pectoris Current visit: Yes Status: Acute (4) Essential (primary) hypertension Current visit: Yes Status: Acute (5) Other cerebral infarction Current visit: Yes Status: Acute (6) Diastolic CHF Current visit: Yes Status: Acute (7) Anemia Current visit: Yes Status: Acute HGB 8.4 today, remains stable on Plavix <Gaby Solis - 12/07/16 09:49> - Attestation Attestation Narrative: 12/07/16 17:51 Recommendation After examining the patient I agree with the above assessment. I am involved in the formulation of the patient's plan of care. <Hemant Thompson - 12/07/16 17:51> Hospital Course Summary Disclaimer: The visit summary below is not to be considered part of the above Progress Note. <Hemant Thompson - 12/07/16 17:51> The visit summary below is not to be considered part of the above Progress Note. <Gaby Solis - 12/06/16 15:51> Hospital Course: 12/01/16 - Admission to CCU Impression Acute anemia Hypotension Presumed Upper GI bleed Chronic anticoagulation with Pradaxa Chronic antiplatelet use with Plavix and aspirin for stent placed in February 2016 Chronic A. fib-currently A. fib with RVR Coronary artery disease-currently asymptomatic mild dementia History of hypertension Chronic nocturnal hypoxia for which he uses 2 L of oxygen Class III systolic heart failure Plan Admit to CCU. Full code per patient's son who is DPOA. Type and cross 2 units of blood and stay 2 units ahead. Give 2 units of blood now. Praxbind to reverse Pradaxa now Protonix 80 mg IV followed by protonix drip Nothing by mouth Q6 hour hemoglobin Hold all by mouth meds SCDs for DVT prophylaxis Consult Dr. Herrera regarding GI bleed/EGD Consult Dr. Thompson regarding underlying coronary artery disease Chest x-ray Check a lipid function test now and in the morning 12/02/16 Transfuse 4 units yesterday - Hemoglobin improved to 9.6 12/03/[address] Herrera - no pathology found to cause anemia. 12/04/[address] Herrera - Long redundant colon, unable to reach cecum. Transfer to medical floor. 12/05/[address] Eric Diehl, Dr. Herrera and Dr. Thompson, the decision was made to obtain a CT abdomen and pelvis with contrast in 2 or 3 days after barium has passed to look for a colonic mass that might have been missed in the ascending colon which we were unable to see by colonoscopy or barium enema. In the meantime, will restart Plavix and monitor on telemetry and continue to monitor hemoglobin. Potassium replaced orally. Coreg restarted today. Restart a regular diet. 12/06/16 Cardiology HGB 8.4 today, remains stable on Plavix <Gaby Solis - 12/07/16 09:50>
[2016-12-06 23:03] VITALS: BMI 31.9
[2016-12-07] MEDS: CLOPIDOGREL 75 MG TABLET PO SCH (09:09)
[2016-12-07] MEDS: CARVEDILOL 12.5 MG TABLET PO SCH ×2 (09:09→17:12)
[2016-12-07] MEDS: SERTRALINE 100 MG TABLET PO SCH (09:09)
--- NOTE | 2016-12-07 11:19 | Progress Note ---
Subjective: F/U: Severe anemia Doing okay. Denies ab pain, cramping, bloating, or nausea. Feels appetite okay. Not had stool for several days. Urine stream decreased; no pain or discomfort with urination. Breathing feels well; denies SOA, cough, congestion or pain with breathing. No chest pressure, heaviness, or palpitations. No f/c. Objective Vital signs: Temperature 98.0 F 12/07/16 08:20 Pulse Rate 90 12/07/16 08:20 Respiratory Rate 16 12/07/16 08:20 Blood Pressure 146/75 H 12/07/16 08:20 Pulse Oximetry 96 12/07/16 08:20 Rhythm: Atrial Fibrillation with Normal Ventricular Rate Height/Weight/BMI: Height 1.7 m Weight 82.7 kg Body Mass Index 31.9 - Constitutional Present: well nourished, well developed, cooperative - Routine HEENT Exam Head: Present: normocephalic, atraumatic Eye: Present: EOMI, PERRL ENT: Present: mucous membranes moist - Routine Respiratory Exam Present: CTA bilaterally. Absent: rales, respiratory distress, rhonchi, wheezes , crackles - Routine Cardiovascular Exam Present: no murmur, irregular rhythm, irregularly irregular - Routine Abdominal Exam Present: soft, non distended, non tender. Absent: normoactive bowel sounds ( Decreased ), rebound, guarding - Routine Extremities Exam Present: no edema, pulses intact. Absent: cyanosis, clubbing - Routine Musculoskeletal Exam Musculoskeletal: Present: no clubbing or cyanosis - Routine Skin Exam Present: dry, warm - Routine Neurological Exam Present: alert, CN II-XII intact, vision grossly intact, hearing grossly intact - Routine Psychiatric Exam Present: normal affect, cooperative. Absent: anxious, agitated Results - Labs CBC & Chem 7: 12/07/16 09:18 12/07/16 09:18 Assessment and Plan DVT Prophylaxis: SCD's Resuscitation Status: Do Not Resuscitate Assessment and Plan: Impression Acute anemia. Hemoglobin 4 on admission (transfused 4 units) EGD normal 12/03/2016. Colonoscopy normal on 12/04/2016, however unable to see the ascending colon secondary to very large, long redundant colon. Attempted barium enema 12/05/16 which was also unsuccessful. Chronically anticoagulated with pradaxa for paroxysmal atrial fibrillation- Pradaxa is still on hold. Patient received reversal agent on admission. Chronic antiplatelet agent with aspirin and Plavix for coronary artery disease and recent stent in February 2016. Paroxysmal atrial fibrillation -rate controlled with Coreg Coronary artery disease-asymptomatic history of cardiomyopathy, systolic heart failure has improved and EF is 60%. Hypokalemia (Not POA) Hypertension-fair control Dementia Nocturnal hypoxemia-chronically on 2 L at night Plan Hemoglobin 8.8 this am. No evidence of GI bleeding with restarting Plavix. Will start Miralax due to no stool output. Restart home Neurontin, Primidone, and Flomax. Blood pressures showing increase - will restart lisinopril 10mg daily. Anticipate CT ab/pelvis on 12/08 to check for colonic mass. Monitor lab. Time spent with patient care 25 minutes. - Time spent with patient Time with patient PN: 25 minutes Hospital Course Summary Disclaimer: The visit summary below is not to be considered part of the above Progress Note. Hospital Course: 12/01/16 - Admission to CCU Impression Acute anemia Hypotension Presumed Upper GI bleed Chronic anticoagulation with Pradaxa Chronic antiplatelet use with Plavix and aspirin for stent placed in February 2016 Chronic A. fib-currently A. fib with RVR Coronary artery disease-currently asymptomatic mild dementia History of hypertension Chronic nocturnal hypoxia for which he uses 2 L of oxygen Class III systolic heart failure Plan Admit to CCU. Full code per patient's son who is DPOA. Type and cross 2 units of blood and stay 2 units ahead. Give 2 units of blood now. Praxbind to reverse Pradaxa now Protonix 80 mg IV followed by protonix drip Nothing by mouth Q6 hour hemoglobin Hold all by mouth meds SCDs for DVT prophylaxis Consult Dr. Herrera regarding GI bleed/EGD Consult Dr. Thompson regarding underlying coronary artery disease Chest x-ray Check a lipid function test now and in the morning 12/02/16 Transfuse 4 units yesterday - Hemoglobin improved to 9.6 12/03/[address] Herrera - no pathology found to cause anemia. 12/04/[address] Herrera - Long redundant colon, unable to reach cecum. Transfer to medical floor. 12/05/[address] Eric Diehl, Dr. Herrera and Dr. Thompson, the decision was made to obtain a CT abdomen and pelvis with contrast in 2 or 3 days after barium has passed to look for a colonic mass that might have been missed in the ascending colon which we were unable to see by colonoscopy or barium enema. In the meantime, will restart Plavix and monitor on telemetry and continue to monitor hemoglobin. Potassium replaced orally. Coreg restarted today. Restart a regular diet. 12/06/16 Medically doing well. HR and BP controlled. Hemoglobin 8.[address] ab/pelvis on 12/08 to check for colonic mass. Replace potassium. 12/06/16 Cardiology HGB 8.4 today, remains stable on Plavix 12/07/16 Hemoglobin 8.8 this am. No evidence of GI bleeding with restarting Plavix. Will start Miralax due to no stool output. Restart home Neurontin, Primidone, and Flomax. Blood pressures showing increase - will restart lisinopril 10mg daily. Anticipate CT ab/pelvis on 12/08 to check for colonic mass.
--- NOTE | 2016-12-07 11:43 | Cardiology Progress Note ---
Subjective Principal diagnosis: Acute anemia, Atrial fibrillation with RVR <Odette Canales - 12/07/16 11:55> Interval history: patient states that he feels ok today except that he has a headache. This headache is not new for him as he has them frequently Otherwise, patient has no new cardiac complaints. He denies chest pain or SOA. <Odette Canales - 12/07/16 11:55> Exam Vital signs: Temperature 95.8 F L 12/08/16 08:36 Pulse Rate 99 12/08/16 12:37 Respiratory Rate 16 12/08/16 08:36 Blood Pressure 125/76 12/08/16 08:36 Pulse Oximetry 95 12/08/16 08:36 <Hemant Thompson - 12/09/16 12:56> Temperature 96.5 F L 12/07/16 15:25 Pulse Rate 84 12/07/16 15:25 Respiratory Rate 16 12/07/16 15:25 Blood Pressure 147/71 H 12/07/16 15:25 Pulse Oximetry 98 12/07/16 15:25 <Gaby Solis - 12/07/16 17:43> Temperature 98.0 F 12/07/16 08:20 Pulse Rate 90 12/07/16 08:20 Respiratory Rate 16 12/07/16 08:20 Blood Pressure 146/75 H 12/07/16 08:20 Pulse Oximetry 96 12/07/16 08:20 <Odette Canales - 12/07/16 11:55> - Constitutional no acute distress <Odette Canales Mic - 12/07/16 11:55> - Routine HEENT Exam Head: Present: normocephalic <Odette Canales - 12/07/16 11:55> Eye: Present: EOMI <Odette Canales - 12/07/16 11:55> ENT: Present: mucous membranes moist <[email or web address] A - 12/07/16 11:55> - Routine Neck Exam Present: JVD. Absent: carotid bruit <Gaby Solis - 12/07/16 17:44> - Routine Chest/Breast/Axilla Exam Chest wall: Absent: tenderness <Gaby Solis - 12/07/16 17:44> - Routine Respiratory Exam Present: diminished air movement (Diminished Bilat with no rales). Absent: accessory muscle use, respiratory distress, rhonchi <Odette Canales - 11:55> - Routine Cardiovascular Exam Present: RRR, irregular rhythm <Gaby Solis - 12/07/16 17: 44> Present: RRR. Absent: murmur <Odette Canales - 12/07/16 11: 55> - Routine Extremities Exam Present: no edema. Absent: cyanosis <Odette Canales - 12/07/16 11:55> - Detailed Extremities Exam: Vascular Peripheral pulses: 2+ dorsalis pedis (L), 2+ dorsalis pedis (R) <Odette Canales - 12/07/16 11:55> - Routine Skin Exam Present: intact (to exposed skin) <Odette Canales - 12/07/16 11:55> - Routine Neurological Exam Present: alert, oriented X3 <Odette Canales - 12/07/16 11:55> - Routine Psychiatric Exam Present: normal affect <Odette Canales - 12/07/16 11:55> - Additional findings Additional findings: Laboratory Results - last 24 hr 12/07/16 12/07/16 09:18 09:18 WBC 6.3 RBC 3.19 L Hgb 8.8 L Hct 28.2 L MCV 88.4 MCH 27.6 MCHC 31.2 RDW Std Deviation 46.4 Plt Count 193 MPV 9.6 Immature Gran % (Auto) 0.2 Neut % (Auto) 71.5 H Lymph % (Auto) 13.4 L [place] % (Auto) 6.5 Eos % (Auto) 7.8 H Baso % (Auto) 0.6 Neut # (Auto) 4.5 Lymph # (Auto) 0.8 L [place] # (Auto) 0.4 Eos # (Auto) 0.5 Baso # (Auto) 0.0 Abs Immat Gran (auto) 0.01 Turbidity < 20 Sodium 144 Potassium 3.6 Chloride 113 H Carbon Dioxide 25 Anion Gap 6 BUN 11.0 Creatinine 1.0 GFR Calculation 73 BUN/Creatinine Ratio 11 Glucose 102 Calculated Osmolality 276 Calcium 8.0 L Magnesium 2.4 H Icterus Index < 2 Specimen Hemolysis < 15 Acetaminophen (Tylenol Arthritis) 650 mg PO Q6H PRN PRN Reason: P Last Admin: 12/05/16 11:09 Dose: 650 mg Ascorbic Acid (Vitamin C) 500 mg PO WB [facility] Carvedilol (Coreg) 12.5 mg PO BIDWM [facility] Last Admin: 12/07/16 09:09 Dose: 12.5 mg Clopidogrel Bisulfate (Plavix) 75 mg PO DAILY [facility] Last Admin: 12/07/16 09:09 Dose: 75 mg Ferrous Sulfate (Feosol) 324 mg PO WB [facility] Gabapentin (Neurontin) 300 mg PO BID [facility] Lidocaine (Anecream5) 1 applic TOP PRN PRN Lisinopril (Prinivil) 10 mg PO DAILY [facility] Ondansetron HCl (Zofran) 4 mg IVP Q6H PRN PRN Reason: Nausea Last Admin: 12/04/16 00:10 Dose: 4 mg Polyethylene Glycol (Miralax) 17 gm PO DAILY [facility] Primidone (Mysoline) 100 mg PO BID [facility] Sertraline HCl (Zoloft) 100 mg PO DAILY [facility] Last Admin: 12/07/16 09:09 Dose: 100 mg Sodium Chloride (Iv Flush) 10 - 80 ml IVF PRN PRN PRN Reason: Flushing Last Admin: 12/05/16 05:06 Dose: 30 ml Sodium Chloride (Normal Saline) 500 ml IV PRN PRN Last Admin: 12/04/16 11:41 Dose: 500 ml Tamsulosin HCl (Flomax) 0.4 mg PO [facility] CXR date of Exam: 12/02/16 Ordering Provider: Alyssa Adams MD Type of Exam(s): XR chest 1V Reason for Exam(s): chf Indication: chf PROCEDURE: XR chest 1V: Encounter: Initial Comparison: December 01, 2016 Findings: Lungs are stable in appearance. Large hiatal hernia. No focal pneumonia or gross pleural effusion. No pneumothorax. Heart size and mediastinal contours are stable. Impression: Stable chest without evidence of acute pneumonia or congestive failure. <Odette Canales - 12/07/16 11:55> Assessment and Plan - Assessment and Plan (1) Paroxysmal atrial fibrillation Status: Acute (2) Cardiomyopathy Status: Acute (3) Atherosclerotic heart disease of [place] coronary artery without angina pectoris Status: Chronic (4) Essential (primary) hypertension Status: Chronic (5) Other cerebral infarction Status: Chronic (6) Diastolic CHF Status: Chronic (7) Anemia Status: Acute <Hemant Thompson - 12/09/16 12:56> (1) Paroxysmal atrial fibrillation Status: Acute (2) Cardiomyopathy Status: Acute (3) Atherosclerotic heart disease of [place] coronary artery without angina pectoris Status: Chronic (4) Essential (primary) hypertension Status: Chronic (5) Other cerebral infarction Status: Chronic (6) Diastolic CHF Status: Chronic (7) Anemia Status: Acute <Odette Canales - 12/08/16 08:50> (1) Paroxysmal atrial fibrillation Status: Acute (2) Cardiomyopathy Status: Acute (3) Atherosclerotic heart disease of [place] coronary artery without angina pectoris Status: Acute (4) Essential (primary) hypertension Status: Acute Resume home Lasix and potassium tomorrow. - Lasix 40mg IV X1 tonight (5) Other cerebral infarction Status: Acute (6) Diastolic CHF Status: Acute (7) Anemia Status: Acute <Gaby Solis - 12/07/16 17:43> - Assessment and Plan Hgb remains stable on Plavix Continue B-Rakan for rate control Give Tylenol for ASH - no neurological deficits <Odette Canales - 12/07/16 11:55> - Attestation Attestation Narrative: 12/09/16 12:55 Patient seen and evaluated by myself on the date of this note. I agree with above and I have determined this plan of care. <Hemant Thompson - 12/09/16 12:56> Hospital Course Summary Disclaimer: The visit summary below is not to be considered part of the above Progress Note. <Hemant Thompson - 12/09/16 12:56> The visit summary below is not to be considered part of the above Progress Note. <Gaby Solis - 12/07/16 17:43> The visit summary below is not to be considered part of the above Progress Note. <Odette Canales - 12/07/16 11:55> Hospital Course: 12/01/16 - Admission to CCU Impression Acute anemia Hypotension Presumed Upper GI bleed Chronic anticoagulation with Pradaxa Chronic antiplatelet use with Plavix and aspirin for stent placed in February 2016 Chronic A. fib-currently A. fib with RVR Coronary artery disease-currently asymptomatic mild dementia History of hypertension Chronic nocturnal hypoxia for which he uses 2 L of oxygen Class III systolic heart failure Plan Admit to CCU. Full code per patient's son who is DPOA. Type and cross 2 units of blood and stay 2 units ahead. Give 2 units of blood now. Praxbind to reverse Pradaxa now Protonix 80 mg IV followed by protonix drip Nothing by mouth Q6 hour hemoglobin Hold all by mouth meds SCDs for DVT prophylaxis Consult Dr. Herrera regarding GI bleed/EGD Consult Dr. Thompson regarding underlying coronary artery disease Chest x-ray Check a lipid function test now and in the morning 12/02/16 Transfuse 4 units yesterday - Hemoglobin improved to 9.6 12/03/[address] Herrera - no pathology found to cause anemia. 12/04/[address] Herrera - Long redundant colon, unable to reach cecum. Transfer to medical floor. 12/05/[address] Eric Diehl, Dr. Herrera and Dr. Thompson, the decision was made to obtain a CT abdomen and pelvis with contrast in 2 or 3 days after barium has passed to look for a colonic mass that might have been missed in the ascending colon which we were unable to see by colonoscopy or barium enema. In the meantime, will restart Plavix and monitor on telemetry and continue to monitor hemoglobin. Potassium replaced orally. Coreg restarted today. Restart a regular diet. 12/06/16 Medically doing well. HR and BP controlled. Hemoglobin 8.[address]ticipate CT ab/pelvis on 12/08 to check for colonic mass. Replace potassium. 12/06/16 Cardiology HGB 8.4 today, remains stable on Plavix 12/07/16 Hemoglobin 8.8 this am. No evidence of GI bleeding with restarting Plavix. Will start Miralax due to no stool output. Restart home Neurontin, Primidone, and Flomax. Blood pressures showing increase - will restart lisinopril 10mg daily. Anticipate CT ab/pelvis on 12/08 to check for colonic mass. 12/07/16 Cardiology Hgb remains stable on Plavix Continue B-Rakan for rate control Give Tylenol for ASH - no neurological deficits <Odette Canales - 12/07/16 11:55>
[2016-12-07] MEDS: LISINOPRIL 10 MG TABLET PO SCH (12:06)
[2016-12-07] MEDS: POLYETHYL GLYCOL 3350 17gm PACKET PO SCH (12:06)
[2016-12-07] MEDS ORDERED: FUROSEMIDE 40 MG/4 ML INJECTION IVP ONE (17:42)
[2016-12-07] MEDS: GABAPENTIN 300 MG CAPSULE PO SCH (20:50)
[2016-12-07] MEDS: PRIMIDONE 50 MG TABLET PO SCH (20:50)
[2016-12-07] MEDS ORDERED: TAMSULOSIN 0.4 MG CAPSULE PO SCH (21:00)
[2016-12-08] MEDS: SALINE FLUSH 10ml SYRINGE IVF PRN (05:47)
[2016-12-08] MEDS ORDERED: IOHEXOL 300mg/ml 100ml INJECTION ONE (07:15)
[2016-12-08] MEDS ORDERED: NS 100 ML ONE (07:15)
[2016-12-08] MEDS ORDERED: SALINE FLUSH 10ml SYRINGE ONE (07:15)
[2016-12-08] MEDS ORDERED: FERROUS SULFATE 324 MG TABLET PO SCH (08:00)
[2016-12-08] MEDS ORDERED: ASCORBIC ACID 500 MG TABLET PO SCH (08:00)
[2016-12-08 08:39] VITALS: BP 125/76; PULSE 99; RESP 16; TEMP 95.8; O2SAT 95
[2016-12-08] MEDS ORDERED: FUROSEMIDE 40 MG TABLET PO SCH (09:00)
--- NOTE | 2016-12-08 09:16 | CT Scan Report ---
Indication: gi bleed, PROCEDURE: CT abdomen pelvis w con: Encounter: Initial Comparison: None Technique: Axial CT images were performed through the abdomen and pelvis after the administration of intravenous contrast. Coronal and sagittal two-dimensional reformats. Automated Exposure Control and Iterative Reconstruction dose reducing techniques were utilized. Contrast: Omnipaque 300 100 mL Findings: Bilateral lower lobe atelectasis, right greater than left. Trace bilateral pleural effusions. Cardiomegaly. Intrathoracic stomach. The liver is decreased in attenuation suggesting fatty infiltration. Colonic interposition beneath the right hemidiaphragm. No enhancing liver mass or bile duct dilatation. The gallbladder is surgically absent. The spleen, partially fatty replaced pancreas, adrenal glands and kidneys show no acute findings. Prominent right renal cysts. Atherosclerotic plaque at the SMA origin causing mild stenosis. Mild stenosis of the right renal artery origin. Metallic artifact in the pelvis from left femoral hardware and streak artifact also from residual barium material in the rectosigmoid colon. Bladder is mildly thick-walled. No obvious free fluid. There is a small amount of infiltration in the left retroperitoneum adjacent to the external iliac vessels near the sigmoid colon. Some occasional areas of dense barium contrast seen within the right-sided aspect of the sigmoid. Mild diverticulosis without evidence of acute diverticulitis. No bowel obstruction. Bone windows show chronic appearing compression fractures of T11-L2. Impression: 1. No clear etiology for the patient's reported GI bleeding. 2. Small pleural effusions with lower lobe atelectasis. .
[2016-12-08] MEDS: SERTRALINE 100 MG TABLET PO SCH (10:06)
[2016-12-08] MEDS: CARVEDILOL 12.5 MG TABLET PO SCH (10:06)
[2016-12-08] MEDS: PRIMIDONE 50 MG TABLET PO SCH (10:06)
[2016-12-08] MEDS: LISINOPRIL 10 MG TABLET PO SCH (10:06)
[2016-12-08] MEDS: CLOPIDOGREL 75 MG TABLET PO SCH (10:06)
[2016-12-08] MEDS: POLYETHYL GLYCOL 3350 17gm PACKET PO SCH (10:07)
[2016-12-08] MEDS: GABAPENTIN 300 MG CAPSULE PO SCH (10:07)
--- NOTE | 2016-12-08 10:09 | Progress Note ---
Subjective: F/U: Severe anemia Doing well this morning. Breathing stable. No chest pain. Not having nausea or ab pain. Tolerated CT scan-no colonic mass found. Objective Vital signs: Temperature 95.8 F L 12/08/16 08:36 Pulse Rate 99 12/08/16 08:36 Respiratory Rate 16 12/08/16 08:36 Blood Pressure 125/76 12/08/16 08:36 Pulse Oximetry 95 12/08/16 08:36 Rhythm: Atrial Fibrillation with Normal Ventricular Rate Height/Weight/BMI: Height 1.7 m Weight 81.2 kg Body Mass Index 31.9 - Constitutional Present: no acute distress, well nourished, well developed, average body habitus , cooperative - Routine HEENT Exam Head: Present: normocephalic, atraumatic Eye: Present: EOMI, PERRL ENT: Present: mucous membranes moist - Routine Respiratory Exam Present: CTA bilaterally. Absent: rales, respiratory distress, rhonchi, wheezes , crackles - Routine Cardiovascular Exam Present: irregular rhythm, irregularly irregular - Routine Abdominal Exam Present: soft, normoactive bowel sounds, non distended, non tender - Routine Extremities Exam Present: no edema, pulses intact. Absent: cyanosis, clubbing - Routine Musculoskeletal Exam Musculoskeletal: Present: no clubbing or cyanosis - Routine Skin Exam Present: intact, dry, warm - Routine Neurological Exam Present: alert, oriented X3, CN II-XII intact, vision grossly intact, hearing grossly intact. Absent: altered mental status - Routine Psychiatric Exam Present: normal affect, normal thought process, cooperative. Absent: anxious, agitated Results - Labs CBC & Chem 7: 12/08/16 05:24 12/07/16 09:18 Assessment and Plan DVT Prophylaxis: SCD's Resuscitation Status: Do Not Resuscitate Assessment and Plan: Impression Acute anemia. Hemoglobin 4 on admission (transfused 4 units) EGD normal 12/03/2016. Colonoscopy normal on 12/04/2016, however unable to see the ascending colon secondary to very large, long redundant colon. Attempted barium enema 12/05/16 which was also unsuccessful. Chronically anticoagulated with pradaxa for paroxysmal atrial fibrillation- Pradaxa is still on hold. Patient received reversal agent on admission. Chronic antiplatelet agent with aspirin and Plavix for coronary artery disease and recent stent in February 2016. Paroxysmal atrial fibrillation -rate controlled with Coreg Coronary artery disease-asymptomatic history of cardiomyopathy, systolic heart failure has improved and EF is 60%. Hypokalemia (Not POA) Hypertension-fair control Dementia Nocturnal hypoxemia-chronically on [address] at night Plan [address] abdomen and pelvis without and colonic mass. Hemoglobin stable at 8.9. Will discharge to [facility] for continuation of care. Continue with Plavix for anticoagulation - would hold on restarting Pradaxa for 4-6 weeks to allow hemoglobin to recover. Continue with oral iron. F/U with Dr Lorena Martinez in 1 week for post hospital evaluation. Check CBC in 1 week due to anemia. Check BMP in 1 week due to medication use. See orders for details. Case discussed with CM and family members. Time spent with patient care and discharge 35 minutes. Hospital Course Summary Disclaimer: The visit summary below is not to be considered part of the above Progress Note. Hospital Course: 12/01/16 - Admission to CCU Impression Acute anemia Hypotension Presumed Upper GI bleed Chronic anticoagulation with Pradaxa Chronic antiplatelet use with Plavix and aspirin for stent placed in February 2016 Chronic A. fib-currently A. fib with RVR Coronary artery disease-currently asymptomatic mild dementia History of hypertension Chronic nocturnal hypoxia for which he uses 2 L of oxygen Class III systolic heart failure Plan Admit to CCU. Full code per patient's son who is DPOA. Type and cross 2 units of blood and stay 2 units ahead. Give 2 units of blood now. Praxbind to reverse Pradaxa now Protonix 80 mg IV followed by protonix drip Nothing by mouth Q6 hour hemoglobin Hold all by mouth meds SCDs for DVT prophylaxis Consult Dr. Herrera regarding GI bleed/EGD Consult Dr. Thompson regarding underlying coronary artery disease Chest x-ray Check a lipid function test now and in the morning 12/02/16 Transfuse 4 units yesterday - Hemoglobin improved to 9.6 12/03/[address] Herrera - no pathology found to cause anemia. 12/04/[address] Herrera - Long redundant colon, unable to reach cecum. Transfer to medical floor. 12/05/[address] Eric Diehl, Dr. Herrera and Dr. Thompson, the decision was made to obtain a CT abdomen and pelvis with contrast in 2 or 3 days after barium has passed to look for a colonic mass that might have been missed in the ascending colon which we were unable to see by colonoscopy or barium enema. In the meantime, will restart Plavix and monitor on telemetry and continue to monitor hemoglobin. Potassium replaced orally. Coreg restarted today. Restart a regular diet. 12/06/16 Medically doing well. HR and BP controlled. Hemoglobin 8.[address]ip[address] ab/pelvis on 12/08 to check for colonic mass. Replace potassium. 12/06/16 Cardiology HGB 8.4 today, remains stable on Plavix 12/07/16 Hemoglobin 8.8 this am. No evidence of GI bleeding with restarting Plavix. Will start Miralax due to no stool output. Restart home Neurontin, Primidone, and Flomax. Blood pressures showing increase - will restart lisinopril 10mg daily. Anticipate CT ab/pelvis on 12/08 to check for colonic mass. 12/07/16 Cardiology Hgb remains stable on Plavix Continue B-Rakan for rate control Give Tylenol for ASH - no neurological deficits 12/08/16 CT abdomen and pelvis without and colonic mass. Hemoglobin stable at 8.9. Will discharge to [facility] for continuation of care. Continue with Plavix for anticoagulation - would hold on restarting Pradaxa for 4-6 weeks to allow hemoglobin to recover. Continue with oral iron. F/U with Dr Lorena Martinez in 1 week for post hospital evaluation. Check CBC in 1 week due to anemia. Check BMP in 1 week due to medication use. See orders for details.
--- NOTE | 2016-12-08 10:19 | Discharge Summary ---
Discharge Information Date of admission: 12/01/16 15:05 Anticipated date of discharge: 12/08/16 Attending Physician: Sean Gonzalez MD Primary care physician: Dr Amy Martinez Consults: Physician Consult: Venu Herrera Reason For Exam: gi bleed likely upper Physician Consult: Hemant Thompson Reason For Exam: cad, chf - Discharge Diagnosis (1) Anemia Status: Acute Discharge Diagnosis: Discharge diagnosis Acute anemia. Hemoglobin 4 on admission (transfused 4 units) EGD normal 12/03/2016. Colonoscopy normal on 12/04/2016, however unable to see the ascending colon secondary to very large, long redundant colon. Attempted barium enema 12/05/16 which was also unsuccessful. CT scan abdomen/pelvis 12/08/16 not showing colonic mass. Associated conditions and complications Chronically anticoagulated with pradaxa for paroxysmal atrial fibrillation- Pradaxa is still on hold. Patient received reversal agent on admission. Chronic antiplatelet agent with aspirin and Plavix for coronary artery disease and recent stent in February 2016. Paroxysmal atrial fibrillation -rate controlled with Coreg Coronary artery disease-asymptomatic history of cardiomyopathy, systolic heart failure has improved and EF is 60%. Hypokalemia (Not POA) Hypertension-fair control Dementia Nocturnal hypoxemia-chronically on 2 L at night - Procedures Procedures: DATE OF OPERATION: 03/05/2016 OPERATION: Esophagogastroduodenoscopy. SURGEON: Dr. Herrera PREOPERATIVE DIAGNOSES 1. Acute gastrointestinal tract bleeding with melena. 2. Severe anemia due to acute gastrointestinal tract blood loss. 3. Small hiatal hernia. 4. Gastroesophageal reflux disease. 5. Personal history of gastric ulcers found at esophagogastroduodenoscopy on 12/01/2004. POSTOPERATIVE DIAGNOSES 1. Acute gastrointestinal tract bleeding with melena. 2. Severe anemia due to acute gastrointestinal tract blood loss. 3. Gastroesophageal reflux disease. 4. Normal findings at upper gastrointestinal tract at esophagogastroduodenoscopy today. DATE OF OPERATION: 12/04/2016 OPERATION: Colonoscopy. SURGEON: Dr. Herrera PREOPERATIVE DIAGNOSES 1. Recent acute gastrointestinal tract bleeding with melena. 2. Sigmoid colon diverticulosis. 3. Internal and external hemorrhoids. POSTOPERATIVE DIAGNOSES 1. Recent acute gastrointestinal tract bleeding with melena. 2. Sigmoid colon diverticulosis. 3. Internal and external hemorrhoids. 4. Long redundant colon with inability to reach cecum with colonoscope. - Laboratory Labs: Admit Lab 12/01/16 14:06 WBC 7.0 Hgb 4.1 L* Hct 13.5 L* MCV 90.0 MCH 27.3 Plt Count 276 Neut % (Auto) 79.1 H Lymph % (Auto) 11.9 L Admit Lab 12/01/16 14:06 Sodium 144 Potassium 4.5 Chloride 114 H Carbon Dioxide 20 L Anion Gap 10 BUN 42.0 H Creatinine 1.3 GFR Calculation 54 BUN/Creatinine Ratio 32 H Glucose 121 H Calculated Osmolality 289 H Magnesium 2.3 AST 15 L ALT 28 Troponin I 0.025 B-Natriuretic Peptide 4340 H TSH 3.74 12/08/16 05:24 12/07/16 09:18 - Radiology Radiology: Date of Exam: 12/01/16 PROCEDURE: XR chest 1V Findings: Prior left lower lobe infiltrate has cleared. Lungs are hypoinflated but grossly clear. No pneumothorax or effusion. Heart size and mediastinal contours are stable. Pulmonary vascularity is normal. Impression: No pneumonia or congestive failure. Date of Exam: 12/01/16 PROCEDURE: CT head/brain wo con IMPRESSION: No acute intracranial abnormality or hemorrhage. Date of Exam: 12/05/16 Procedure: FL barium enema Impression: Unsuccessful attempt of a barium enema as described above. Date of Exam: 12/08/16 PROCEDURE: CT abdomen pelvis w con Impression: 1. No clear etiology for the patient's reported GI bleeding. 2. Small pleural effusions with lower lobe atelectasis. History of Present Illness HPI: Patient is a pleasant 76-year-old male retirement patient with history of coronary artery disease and atrial fibrillation. He is on aspirin, Plavix, and Pradaxa. He had a PTCA and stent on 03/20/2016. He has had low blood pressure at the retirement for the past few days and received IV fluids yesterday, but blood pressure was still low today. EMS arrived and blood pressure was 70/30. He was given IV fluids and transferred to the emergency room where blood pressure was 95/52. The patient's hemoglobin was found to be 4.1. His INR was 1.58. PTT was 45.1. BUN was 42. Creatinine 1.3. The patient was typed and crossed for 2 units. IV fluids were continued in the emergency room. I was called to admit the patient for GI bleed. The ER doctor did do a rectal exam which revealed dark stool which was Hemoccult positive. The patient was admitted to CCU. He denies any shortness of breath or chest pain. He denies any palpitations. He states he has felt lightheaded for about one week. He thinks he has had dark stools for about a week and has had a poor appetite for about a week. He has mild dementia. He states he is nonambulatory. He is agreeable to blood transfusion. For complete details of the H&P refer to that document. Objective Vital signs: Temperature 95.8 F L 12/08/16 08:36 Pulse Rate 99 12/08/16 08:36 Respiratory Rate 16 12/08/16 08:36 Blood Pressure 125/76 12/08/16 08:36 Pulse Oximetry 95 12/08/16 08:36 Rhythm: Atrial Fibrillation with Normal Ventricular Rate Height/Weight/BMI: Height 1.7 m Weight 81.2 kg Body Mass Index 31.9 Hospital Course This is a general summary of the patient's hospital course. For more details refer to the complete medical record. Hospital course: 12/01/16 - Admission to CCU Impression Acute anemia Hypotension Presumed Upper GI bleed Chronic anticoagulation with Pradaxa Chronic antiplatelet use with Plavix and aspirin for stent placed in February 2016 Chronic A. fib-currently A. fib with RVR Coronary artery disease-currently asymptomatic mild dementia History of hypertension Chronic nocturnal hypoxia for which he uses 2 L of oxygen Class III systolic heart failure Plan Admit to CCU. Full code per patient's son who is DPOA. Type and cross 2 units of blood and stay 2 units ahead. Give 2 units of blood now. Praxbind to reverse Pradaxa now Protonix 80 mg IV followed by protonix drip Nothing by mouth Q6 hour hemoglobin Hold all by mouth meds SCDs for DVT prophylaxis Consult Dr. Herrera regarding GI bleed/EGD Consult Dr. Thompson regarding underlying coronary artery disease Chest x-ray Check a lipid function test now and in the morning 12/02/16 Transfuse 4 units yesterday - Hemoglobin improved to 9.6 12/03/[address] Herrera - no pathology found to cause anemia. 12/04/[address] Herrera - Long redundant colon, unable to reach cecum. Transfer to medical floor. 12/05/[address] Eric Diehl, Dr. Herrera and Dr. Thompson, the decision was made to obtain a CT abdomen and pelvis with contrast in 2 or 3 days after barium has passed to look for a colonic mass that might have been missed in the ascending colon which we were unable to see by colonoscopy or barium enema. In the meantime, will restart Plavix and monitor on telemetry and continue to monitor hemoglobin. Potassium replaced orally. Coreg restarted today. Restart a regular diet. 12/06/16 Medically doing well. HR and BP controlled. Hemoglobin 8.[address]ticip[address] ab/pelvis on 12/08 to check for colonic mass. Replace potassium. 12/06/16 Cardiology HGB 8.4 today, remains stable on Plavix 12/07/16 Hemoglobin 8.8 this am. No evidence of GI bleeding with restarting Plavix. Will start Miralax due to no stool output. Restart home Neurontin, Primidone, and Flomax. Blood pressures showing increase - will restart lisinopril 10mg daily. Anticipate CT ab/pelvis on 12/08 to check for colonic mass. 12/07/16 Cardiology Hgb remains stable on Plavix Continue B-Rakan for rate control Give Tylenol for ASH - no neurological deficits 12/08/16 CT abdomen and pelvis without and colonic mass. Hemoglobin stable at 8.9. Will discharge to [facility] for continuation of care. Continue with Plavix for anticoagulation - would hold on restarting Pradaxa for 4-6 weeks to allow hemoglobin to recover. Continue with oral iron. F/U with Dr Lorena Martinez in 1 week for post hospital evaluation. Check CBC in 1 week due to anemia. Check BMP in 1 week due to medication use. See orders for details. DVT Prophylaxis: SCD's GI Prophylaxis: Protonix Discharge Plan - Med Rec/Dispo Referrals/Follow Up: Amy Martinez MD [Physician] - 1 Week (Hospital f/u for severe anemia ) Hemant Thompson MD [Physician] - 3 Weeks (Cardiac evaluation ) Prescriptions: New PEG 3350 17gm PACKET [Miralax] 17 gm PO DAILY PRN packet PRN Reason: Constipation Ferrous Sulfate [Feosol] 324 mg PO WB tablet Ascorbic Acid [Vitamin C] 500 mg PO WB tablet Continue Sertraline HCl 100 mg PO DAILY #0 Tamsulosin HCl 0.4 mg PO HS #0 Bismuth Subsalicylate [Pepto-Bismol] 30 ml PO Q1H PRN #0 PRN Reason: INDIGESTION Carvedilol [Coreg] 12.5 mg PO BIDWM #0 tab Furosemide [Lasix] 40 tab PO DAILY #0 tab Lisinopril 10 mg PO DAILY #0 tab Clopidogrel Bisulfate [Plavix] 75 mg PO DAILY 30 Days #30 tab Oxybutynin Chloride 5 mg PO TID Nitroglycerin [Nitrostat] 0.4 mg SL Q5MIN PRN #0 PRN Reason: CHEST PAIN Gabapentin 300 mg PO BID #0 Potassium Chloride 20 meq PO BIDWM #0 Primidone 100 mg PO BID #0 Discontinued Aspirin [Aspirin EC] 81 mg PO DAILY 30 Days #30 tab Dabigatran [Pradaxa] 150 mg PO BID No Action Acetaminophen [Acetaminophen 8 Hour] 1 - 2 tab PO Q6H PRN #0 PRN Reason: PAIN Discharge Instructions/Outpatient Orders: Provider Discharge Instructions Location: Determined By Patient - Disposition 04 To [facility] Home/Facility - Attestation Attestation Narrative: 12/08/16 10:35 I have independently interviewed and examined patient prior to discharge. See my progress note from today for details. Medically stable for discharge to retirement care.
--- NOTE | 2016-12-08 10:42 | Extended Care Facility Orders ---
Admission Orders Admit to:: [facility] Allergies/Adverse Reactions: Allergies Penicillins Allergy (Unknown, Verified 12/01/16 13:55) RASH morphine Adverse Reaction (Mild, Verified 12/01/16 13:55) NAUSEA Admitting Diagnosis: Anemia Admitting Physician: Sean Gonzalez MD Attending Physician: Dr Amy Martinez Code Status: Do Not Resuscitate Anticiapted Length of Stay: greater than 30 days Rehab Potential: fair Rehab Prognosis: fair Diet: No added salt May use Facility Protocol or Standing Orders: Yes May have flu vaccine: Yes Prison Certification: I certify that SNF services are required to be given on an Inpatient basis because of the patients need for fci care on a continuing basis for the condition(s) for which he/she received inpatient hospital services prior to his/her transfer to the SNF. SNF inpatient care is necessary for the following reasons Indication for Prison: Not Applicable - Additional Information In Event of Arrest: Do Not Start CPR Resident is Aware of Diagnosis: Yes Referrals: Hemant Thompson MD [Physician] - 3 Weeks (Cardiac evaluation ) Amy Martinez MD [Physician] - 1 Week (Hospital f/u for severe anemia ) Additional Orders: F/U with Dr Martinez in 1 week for hospital follow up. F/U with Dr Fonseca in 3 weeks for cardiac evaluation. CBC in 1 week - Dx: Anemia. BMP in 1 week - Dx: Medication use. Continue Plavix 75mg daily---ASA and Pradaxa stopped secondary to anemia. Continue O2 at 2L nightly as prior to admission.
--- NOTE | 2016-12-08 12:57 | Cardiology Progress Note ---
Subjective Principal diagnosis: Acute anemia, Atrial fibrillation with RVR <Odette Canales - 12/08/16 12:59> Interval history: Patient states that he has not had a BM today but otherwise feels well from a cardiac standpoint. He thinks he will be discharged today <Odette Canales - 12/08/16 12:59> Exam Vital signs: Temperature 95.8 F L 12/08/16 08:36 Pulse Rate 99 12/08/16 12:37 Respiratory Rate 16 12/08/16 08:36 Blood Pressure 125/76 12/08/16 08:36 Pulse Oximetry 95 12/08/16 08:36 <Hemant Thompson - 12/09/16 12:47> Temperature 95.8 F L 12/08/16 08:36 Pulse Rate 99 12/08/16 12:37 Respiratory Rate 16 12/08/16 08:36 Blood Pressure 125/76 12/08/16 08:36 Pulse Oximetry 95 12/08/16 08:36 <Odette Canales - 12/08/16 12:59> - Constitutional no acute distress <Odette Canales - 12/08/16 12:59> - Routine HEENT Exam Head: Present: normocephalic, atraumatic <Odette Canales - 12/08/16 12:59> Eye: Present: EOMI <Odette Canales - 12/08/16 12:59> ENT: Present: mucous membranes moist <Odette Canales - 12/08/16 12:59> - Routine Respiratory Exam Present: CTA bilaterally. Absent: accessory muscle use <Odette Canales - 12:59> - Routine Cardiovascular Exam Present: RRR. Absent: murmur <Odette Canales - 12/08/16 12:59> - Routine Abdominal Exam Present: soft. Absent: tenderness <Odette Canales - 12/08/16 12:59> - Routine Extremities Exam Absent: edema <Odette Canales - 12/08/16 12:59> - Routine Neurological Exam Present: alert <Odette Canales - 12/08/16 12:59> - Routine Psychiatric Exam Present: normal affect, cooperative <Odette Canales - 12/08/16 12:59> - Additional findings Additional findings: Laboratory Results - last 24 hr 12/08/16 05:24 WBC 5.6 RBC 3.20 L Hgb 8.9 L Hct 28.4 L MCV 88.8 MCH 27.8 MCHC 31.3 RDW Std Deviation 47.2 Plt Count 184 MPV 10.0 Acetaminophen (Tylenol Arthritis) 650 mg PO Q6H PRN PRN Reason: P Last Admin: 12/07/16 13:44 Dose: 650 mg Ascorbic Acid (Vitamin C) 500 mg PO WB [facility] Last Admin: 12/08/16 10:06 Dose: 500 mg Carvedilol (Coreg) 12.5 mg PO BIDWM [facility] Last Admin: 12/08/16 10:06 Dose: 12.5 mg Clopidogrel Bisulfate (Plavix) 75 mg PO DAILY [facility] Last Admin: 12/08/16 10:06 Dose: 75 mg Ferrous Sulfate (Feosol) 324 mg PO WB [facility] Last Admin: 12/08/16 10:07 Dose: 324 mg Furosemide (Lasix) 40 mg PO DAILY [facility] Last Admin: 12/08/16 10:06 Dose: 40 mg Gabapentin (Neurontin) 300 mg PO BID [facility] Last Admin: 12/08/16 10:07 Dose: 300 mg Lidocaine (Anecream5) 1 applic TOP PRN PRN Lisinopril (Prinivil) 10 mg PO DAILY [facility] Last Admin: 12/08/16 10:06 Dose: 10 mg Ondansetron HCl (Zofran) 4 mg IVP Q6H PRN PRN Reason: Nausea Last Admin: 12/04/16 00:10 Dose: 4 mg Polyethylene Glycol (Miralax) 17 gm PO DAILY [facility] Last Admin: 12/08/16 10:07 Dose: Not Given Potassium Chloride (K-Dur) 20 meq PO BIDWM [facility] Last Admin: 12/08/16 10:07 Dose: 20 meq Primidone (Mysoline) 100 mg PO BID [facility] Last Admin: 12/08/16 10:06 Dose: 100 mg Sertraline HCl (Zoloft) 100 mg PO DAILY [facility] Last Admin: 12/08/16 10:06 Dose: 100 mg Sodium Chloride (Iv Flush) 10 - 80 ml IVF PRN PRN PRN Reason: Flushing Last Admin: 12/08/16 05:47 Dose: 10 ml Sodium Chloride (Normal Saline) 500 ml IV PRN PRN Last Admin: 12/04/16 11:41 Dose: 500 ml Tamsulosin HCl (Flomax) 0.4 mg PO HS GOVIND Last Admin: 12/07/16 20:50 Dose: 0.4 mg <Odette Canales - 12/08/16 13:03> Assessment and Plan - Assessment and Plan (1) Paroxysmal atrial fibrillation Status: Acute (2) Cardiomyopathy Status: Acute (3) Atherosclerotic heart disease of [place] coronary artery without angina pectoris Status: Chronic (4) Essential (primary) hypertension Status: Chronic (5) Other cerebral infarction Status: Chronic (6) Diastolic CHF Status: Chronic (7) Anemia Status: Acute <Hemant Thompson - 12/09/16 12:47> (1) Paroxysmal atrial fibrillation Status: Acute Rate controlled Due to GI bleed, patient not a candidate for local [employer] anticoagulation at this time Patient in need of Plavix due to PTCA/SYDNIE to Diagonal artery 03/20/16 Agree no Aspirin for now Triple therapy would place him at risk for bleeding Plavix has been restarted - Hgb stable on Plavix (2) Cardiomyopathy Status: Acute (3) Atherosclerotic heart disease of [place] coronary artery without angina pectoris Status: Chronic Patient denies chest pain (4) Essential (primary) hypertension Status: Chronic (5) Other cerebral infarction Status: Chronic (6) Diastolic CHF Status: Chronic Controlled. Patient denies SOA (7) Anemia Status: Acute <Odette Canales - 12/08/16 20:18> - Attestation Attestation Narrative: 12/09/16 12:47 Patient seen and evaluated by my midlevel and I agree with above. Patient will return to clinic in one week will consider CBC at that office visit. <Hemant Thompson - 12/09/16 12:47> Hospital Course Summary Disclaimer: The visit summary below is not to be considered part of the above Progress Note. <Hemant Thompson - 12/09/16 12:47> The visit summary below is not to be considered part of the above Progress Note. <Odette Canales - 12/08/16 12:59> Hospital Course: 12/01/16 - Admission to CCU Impression Acute anemia Hypotension Presumed Upper GI bleed Chronic anticoagulation with Pradaxa Chronic antiplatelet use with Plavix and aspirin for stent placed in February 2016 Chronic A. fib-currently A. fib with RVR Coronary artery disease-currently asymptomatic mild dementia History of hypertension Chronic nocturnal hypoxia for which he uses 2 L of oxygen Class III systolic heart failure Plan Admit to CCU. Full code per patient's son who is DPOA. Type and cross 2 units of blood and stay 2 units ahead. Give 2 units of blood now. Praxbind to reverse Pradaxa now Protonix 80 mg IV followed by protonix drip Nothing by mouth Q6 hour hemoglobin Hold all by mouth meds SCDs for DVT prophylaxis Consult Dr. Herrera regarding GI bleed/EGD Consult Dr. Thompson regarding underlying coronary artery disease Chest x-ray Check a lipid function test now and in the morning 12/02/16 Transfuse 4 units yesterday - Hemoglobin improved to 9.6 12/03/[address] Herrera - no pathology found to cause anemia. 12/04/[address] Dr Herrera - Long redundant colon, unable to reach cecum. Transfer to medical floor. 12/05/[address] Eric Diehl, Dr. Herrera and Dr. Thompson, the decision was made to obtain a CT abdomen and pelvis with contrast in 2 or 3 days after barium has passed to look for a colonic mass that might have been missed in the ascending colon which we were unable to see by colonoscopy or barium enema. In the meantime, will restart Plavix and monitor on telemetry and continue to monitor hemoglobin. Potassium replaced orally. Coreg restarted today. Restart a regular diet. 12/06/16 Medically doing well. HR and BP controlled. Hemoglobin 8.[address]ticip[address] CT ab/pelvis on 12/08 to check for colonic mass. Replace potassium. 12/06/16 Cardiology HGB 8.4 today, remains stable on Plavix 12/07/16 Hemoglobin 8.8 this am. No evidence of GI bleeding with restarting Plavix. Will start Miralax due to no stool output. Restart home Neurontin, Primidone, and Flomax. Blood pressures showing increase - will restart lisinopril 10mg daily. Anticipate CT ab/pelvis on 12/08 to check for colonic mass. 12/07/16 Cardiology Hgb remains stable on Plavix Continue B-Rakan for rate control Give Tylenol for ASH - no neurological deficits 12/08/16 CT abdomen and pelvis without and colonic mass. Hemoglobin stable at 8.9. Will discharge to [facility] for continuation of care. Continue with Plavix for anticoagulation - would hold on restarting Pradaxa for 4-6 weeks to allow hemoglobin to recover. Continue with oral iron. F/U with Dr Lorena Martinez in 1 week for post hospital evaluation. Check CBC in 1 week due to anemia. Check BMP in 1 week due to medication use. See orders for details. <Odette Canales - 12/08/16 12:59>
== END 2016-12-08 14:40 | DRG 378 ==
LOC: ED 13:19 → SUATTDRO 15:05 → CCU 15:05 → MED 12-04 19:36
PROVIDERS: ADMIT Internal Medicine; ATTEND Hospitalist
PROC: END.EGD (2016-12-03 10:30)